=== PATIENT | male | born 1960 | race Caucasian/White ===

== ENCOUNTER 2016-05-27 00:56 | Emergency (ER) | payer OTHER ==
[~2016-05-27] VITALS: Ht 185.4 cm; Wt 83.0 kg
[2016-05-27 01:01] VITALS: BP 109/71; PULSE 75; RESP 16; TEMP 97.9; O2SAT 98
[2016-05-27 01:03] VITALS: O2SAT 98
--- NOTE | 2016-05-27 01:24 | RADRPT ---
EXAM DATE/TIME: 05/27/2016 01:17 [place] COMPARISON: No previous studies available for comparison. INDICATIONS : Chest pain. MEDICAL HISTORY : None. SURGICAL HISTORY : None. ENCOUNTER: Initial ACUITY: 1 day PAIN SCORE: 4/10 LOCATION: chest FINDINGS: A single view of the chest demonstrates the lungs to be symmetrically aerated without evidence of mas s, infiltrate or effusion. The cardiomediastinal contours are unremarkable. Osseous structures are intact. CONCLUSION: The lungs are clear. Chi Villa MD on May 27, 2016 at 1:22 Board Certified Radiologist. This report was verified electronically.
[2016-05-27 01:33] LABS: AUTOMATED NEUTROPHIL # 2.1 TH/MM3 (1.8-7.7); BASOPHIL # 0.1 TH/MM3 (0-0.2); BASOPHIL % 1.1 % (0.0-2.0); EOSINOPHIL # 0.1 TH/MM3 (0-0.4); EOSINOPHIL % 1.5 % (0.0-4.0); HEMATOCRIT 40.1 % (39.0-51.0); HEMO FLAGS DIFF FINAL; LYMPH % 45.1 % (9.0-44.0); LYMPHOCYTE # 2.4 TH/MM3 (1.0-4.8); MEAN CELL VOLUME 97.2 FL (80.0-100.0); MEAN CORPUSCULAR HEMOGLOBIN 33.1 PG (27.0-34.0); MONO % 12.4 % (0.0-8.0); NEUT % 39.9 % (16.0-70.0); PLATELET COUNT 214 TH/MM3 (150-450); RED BLOOD COUNT 4.13 MIL/MM3 (4.50-5.90); RED CELL DISTRIBUTION WIDTH 13.7 % (11.6-17.2); WHITE BLOOD COUNT 5.3 TH/MM3 (4.0-11.0)
[2016-05-27 01:51] LABS: ANION GAP 11 MEQ/L (5-15); APTT (PATIENT) 32.4 SEC (24.3-30.1); BICARBONATE 20.2 MEQ/L (21.0-32.0); BLOOD UREA NITROGEN 30 MG/DL (7-18); CHLORIDE 109 MEQ/L (98-107); GLOMERULAR FILTRATION RATE 44 ML/MIN (>89); INTERNATIONAL NORMALIZED RATIO 0.9 RATIO; MAGNESIUM 1.9 MG/DL (1.5-2.5); POTASSIUM 3.8 MEQ/L (3.5-5.1); PROTHROMBIN TIME - PATIENT 10.1 SEC (9.8-11.6); SODIUM (NA) 140 MEQ/L (136-145)
[2016-05-27 01:54] LABS: CREATINE KINASE 578 U/L (39-308)
[2016-05-27 02:07] LABS: CKMB 6.6 NG/ML (0.5-3.6)
--- NOTE | 2016-05-27 02:57 | PD ---
HPI Chief Complaint: Chest Pain Time Seen by Provider: 00:58 Travel History International Travel<30 days: No Contact w/Intl Traveler<30days: No Traveled to known affect area: No History of Present Illness HPI 55-year-old male complains of right low chest pain. He has had for the past 12 hours. It comes and goes. It is worse with palpation. EMS gave aspirin and oxygen and it seemed to help according to him and them. He just arrived by bus from [place]. He's had no shortness of breath. There is no radiation of pain. Severity moderate. He denies history of coronary artery disease. Patient does smoke. He suffers with hypertension. PFSH Past Medical History Cancer: Yes (MOUTH) Hypertension: Yes Tetanus Vaccination: < 5 Years Influenza Vaccination: Yes Past Surgical History Oral Surgery: Yes (TUMOR REMOVED FROM LEFT JAW) Social History Alcohol Use: Yes (OCC) Tobacco Use: Yes Substance Use: No Allergies-Medications (Allergen,Severity, Reaction): Coded Allergies: No Known Allergies (Unverified , 05/27/16) Review of Systems Except as stated in HPI: all other systems reviewed are Neg Physical Exam Narrative GENERAL: 55-year-old male no acute distress SKIN: Warm and dry. HEAD: Atraumatic. Normocephalic. EYES: Pupils equal and round. No scleral icterus. No injection or drainage. ENT: No nasal bleeding or discharge. Mucous membranes pink and moist. NECK: Trachea midline. No JVD. CARDIOVASCULAR: Regular rate and rhythm. No murmur appreciated. Minimal tenderness along the right inferior costal margin. RESPIRATORY: No accessory muscle use. Clear to auscultation. Breath sounds equal bilaterally. GASTROINTESTINAL: Abdomen soft, non-tender, nondistended. Hepatic and splenic margins not palpable. MUSCULOSKELETAL: No obvious deformities. No clubbing. No cyanosis. No edema. NEUROLOGICAL: Awake and alert. No obvious cranial nerve deficits. Motor grossly within normal limits. Normal speech. PSYCHIATRIC: Appropriate mood and affect; insight and judgment normal. Data Data Last Documented VS Vital Signs Date Time Temp Pulse Resp B/P Pulse Ox O2 Delivery O2 Flow Rate FiO2 05/27/16 01:04 98 Nasal Cannula 2 05/27/16 01:01 97.9 75 16 109/71 VS noted Orders Electrocardiogram (05/27/16 00:58) Basic Metabolic Panel (Bmp) (05/27/16 00:58) Ckmb (Isoenzyme) Profile (05/27/16 00:58) Complete Blood Count With Diff (05/27/16 00:58) Magnesium (Mg) (05/27/16 00:58) Prothrombin Time / Inr (Pt) (05/27/16 00:58) Act Partial Throm Time (Ptt) (05/27/16 00:58) Troponin I (05/27/16 00:58) Chest, Single Ap (05/27/16 00:58) Ecg Monitoring (05/27/16 00:58) Bilateral Bp Monitoring (05/27/16 00:58) Iv Access Insert/Monitor (05/27/16 00:58) Oximetry (05/27/16 00:58) Oxygen Administration (05/27/16 00:58) CKMB (05/27/16 01:05) CKMB% (05/27/16 01:05) Labs Laboratory Tests Test 05/27/16 01:05 White Blood Count 5.3 TH/MM3 Red Blood Count 4.13 MIL/MM3 Hemoglobin 13.7 GM/DL Hematocrit 40.1 % Mean Corpuscular Volume 97.2 FL Mean Corpuscular Hemoglobin 33.1 PG Mean Corpuscular Hemoglobin 34.0 % Concent Red Cell Distribution Width 13.7 % Platelet Count 214 TH/MM3 Mean Platelet Volume 7.8 FL Neutrophils (%) (Auto) 39.9 % Lymphocytes (%) (Auto) 45.1 % Monocytes (%) (Auto) 12.4 % Eosinophils (%) (Auto) 1.5 % Basophils (%) (Auto) 1.1 % Neutrophils # (Auto) 2.1 TH/MM3 Lymphocytes # (Auto) 2.4 TH/MM3 Monocytes # (Auto) 0.7 TH/MM3 Eosinophils # (Auto) 0.1 TH/MM3 Basophils # (Auto) 0.1 TH/MM3 CBC Comment DIFF FINAL Differential Comment Prothrombin Time 10.1 SEC Prothromb Time International 0.9 RATIO Ratio Activated Partial 32.4 SEC Thromboplast Time Sodium Level 140 MEQ/L Potassium Level 3.8 MEQ/L Chloride Level 109 MEQ/L Carbon Dioxide Level 20.2 MEQ/L Anion Gap 11 MEQ/L Blood Urea Nitrogen 30 MG/DL Creatinine 1.62 MG/DL Estimat Glomerular Filtration 44 ML/MIN Rate Random Glucose 90 MG/DL Calcium Level 7.5 MG/DL Magnesium Level 1.9 MG/DL Total Creatine Kinase 578 U/L Creatine Kinase MB 6.6 NG/ML Creatine Kinase MB % 1.1 % Troponin I LESS THAN 0.02 NG/ML MDM Medical Decision Making Medical Screen Exam Complete: Yes Emergency Medical Condition: Yes Medical Record Reviewed: Yes Interpretation(s) CBC & BMP Diagram 05/27/16 01:05 Calcium 7.5 Magnesium 1.9 Total creatinine kinase 578 Troponin less than 0.02 EKG shows a sinus rhythm with a rate of 67 no ischemic injury pattern QT interval is 454 Last 24 hours Impressions Chest X-Ray 05/27/16 0058 Signed Impressions: Service Date/Time: Friday, May 27, 2016 01:17 - CONCLUSION: The lungs are clear. Chi Villa MD Differential Diagnosis NSTEMI, unstable angina, coronary vasospasm, PE, PTX, aortic dissection, pericarditis, myocarditis, endocarditis, PNA, esophageal disease, aneurysm, musculoskeletal etiologies, anxiety, cocaine/sympathomimetic abuse Narrative Course The patient is resting comfortably and feels better, is alert and in no distress. The patients results and examination findings were discussed. The repeat examination is unremarkable and benign. The history, exam, diagnostic testing, and current condition do not suggest any significant pathology to warrant further testing, continued ED treatment, admission, or surgical evaluation at this point. The vital signs have been stable. The patient does not have uncontrollable pain, intractable vomiting, or other significant symptoms. The patient's condition is stable and appropriate for discharge. The patient will pursue further outpatient evaluation with a primary care physician or other designated or consulting physician as indicated in the discharge instructions. The patient expressed understanding and was agreeable with this plan. Diagnosis Primary Impression: Atypical chest pain Referrals: Primary Care Physician 2 days Additional Instructions: You have a choice when it comes to health care, and we are glad that you chose [facility]. Hopefully, we have met your expectations on today's visit. You are welcome to return to [facility] at any time, as we are committed to meeting the health care needs of our community. Med/Other Pt SpecificInfo: No Change to Meds Disposition: 01 DISCHARGE HOME Condition: Stable Jack Fajardo MD May 27, 2016 02:57
--- NOTE | 2016-05-27 14:27 | EKG ---
Date Performed: 05/27/2016 Time Performed: 01:08:28 PTAGE: 55 years EKG: Sinus rhythm MODERATE VOLTAGE CRITERIA FOR LVH, CONSIDER NORMAL VARIANT PROLONGED QT INTERVAL ABNORMAL ECG NO PREVIOUS TRACING DOCTOR: Manuela Cervantes Interpretating Date/Time 05/27/2016 14:22:20
== END 2016-05-27 04:06 | disposition home or self-care (01) ==
LOC: NEPE 00:56
DX: R07.89 Other chest pain (principal); I10 Essential (primary) hypertension; Z72.0 Tobacco use; R94.31 Abnormal electrocardiogram [ECG] [EKG]
CPT/HCPCS: 71010; 80048; 82550; 82552; 83735; 84484; 85025; 85610; 85730; 93005

== ENCOUNTER 2016-05-27 04:48 | Emergency (ER) | payer OTHER ==
[~2016-05-27] VITALS: Ht 185.4 cm; Wt 77.0 kg
[2016-05-27 05:01] VITALS: BP 119/71; PULSE 78; RESP 15; TEMP 97.8; O2SAT 99
--- NOTE | 2016-05-27 06:22 | PD ---
HPI Chief Complaint: Psychiatric Symptoms Time Seen by Provider: 06:13 Travel History International Travel<30 days: No Contact w/Intl Traveler<30days: No Traveled to known affect area: No History of Present Illness HPI 55-year-old black male returns back to the ER under Casper act after just being medically cleared for chest pain. This is a patient who just got off the [employer] bus earlier this evening after coming in from [place]. He states that he had been living in [place]. He had left his girlfriend who is his babies ann after he found out that she had been cheating on him. He states that he has a history of anxiety, depression, PTSD and stopped taking his medications at that time. He has been off his medicine for approximately 3 weeks. He states that he had been staying in [place] but now decided to come to the [facility]. He came directly to the ER after getting off the bus. The patient is currently homeless. He does admit to smoking crack cocaine. He claims that he is feeling acutely depressed and suicidal. He states that he has plans on killing his girlfriend and himself. He states that he did have access to a gun but he had disposed of that. He also states that he does have the ability to get another one. He denies any toxic ingestions. He does drink alcohol and smokes cigarettes as well. The patient states that he feels that he needs to be admitted to the hospital for day or 2 to get his head straight. PFSH Past Medical History Narrative Medical Anxiety, depression, substance abuse, hypertension Cancer: Yes (MOUTH) Hypertension: Yes Past Surgical History Oral Surgery: Yes (TUMOR REMOVED FROM LEFT JAW) Social History Alcohol Use: Yes (OCC) Tobacco Use: Yes Substance Use: Yes (crack) Allergies-Medications (Allergen,Severity, Reaction): Coded Allergies: No Known Allergies (Unverified , 05/27/16) Review of Systems Except as stated in HPI: all other systems reviewed are Neg General / Constitutional: No: Fever, Chills Eyes: No: Diploplia, Blurred Vision, Blindness HENT: No: Headaches, Neck Pain Cardiovascular: Positive: Chest Pain or Discomfort, No: Palpitations Respiratory: No: Cough, Shortness of Breath Gastrointestinal: No: Nausea, Vomiting Genitourinary: No: Frequency, Dysuria Musculoskeletal: No: Myalgias, Arthralgias Skin: No Rash, No Itching Neurologic: No: Headache, Change in Mentation Psychiatric: Positive: Depression, Suicidal Ideations, Mood Disorder, Substance Abuse, Homicidal Ideation, No: Anxiety, Disorder of Thought Physical Exam Narrative GENERAL: Well-nourished, well-developed patient. SKIN: Warm and dry. HEAD: Normocephalic and atraumatic. EYES: No scleral icterus. No injection or drainage. ENT: No nasal drainage noted. Mucous membranes pink. Airway patent. NECK: Supple, trachea midline. Moves head freely without obvious discomfort. CARDIOVASCULAR: Regular rate and rhythm without murmurs, gallops, or rubs. RESPIRATORY: Breath sounds equal bilaterally. No accessory muscle use. GASTROINTESTINAL: Abdomen soft, non-tender, nondistended. EXTREMITIES: No cyanosis or edema. BACK: Nontender without obvious deformity. No CVA tenderness. NEURO: Patient is alert and oriented. no sensorimotor deficits. Nonfocal. Normal speech. PSYCH: No delusions. No auditory or visual hallucinations. Data Data Last Documented VS Vital Signs Date Time Temp Pulse Resp B/P Pulse Ox O2 Delivery O2 Flow Rate FiO2 05/27/16 05:01 97.8 78 15 119/71 99 Orders Psych Screen (05/27/16 05:29) MDM Medical Decision Making Medical Screen Exam Complete: Yes Emergency Medical Condition: Yes Medical Record Reviewed: Yes Interpretation(s) Patient's laboratory tests have been reviewed from his prior visit earlier this evening. Differential Diagnosis MDM: High Differential diagnoses: Schizophrenia, schizoaffective disorder, bipolar, anxiety, depression, adjustment reaction, mood disorder NOS, ODD, depressive disorder NOS, dementia, dementia with agitation, psychosis NOS, substance induced mood disorder, intermittent explosive disorder, Asperger syndrome, infection,electrolyte abnormality, malingering. Narrative Course Mental health screening discussed with the patient. Psychiatric screen ordered. The patient is medically cleared. I see no reason to repeat his laboratory tests this evening. I see no reason to perform a drug screen. The patient does admit to alcohol abuse as well as crack cocaine abuse. This is adjustment reaction with depressed mood, substance abuse, malingering Diagnosis Primary Impression: Adjustment reaction of adolescence with depressed mood Additional Impressions: Substance abuse Malingering Condition: Stable Jack Breaux May 27, 2016 06:22
[2016-05-27 10:00] VITALS: BP 124/82; PULSE 68; RESP 18; TEMP 97.9; O2SAT 97
[2016-05-27 11:12] LABS: BLOOD, URINE NEG (NEG); COMMENT (UR) CULT NOT INDICATED; CULTURE IF INDICATED CULT NOT INDICATED; GLUCOSE,URINE NEG (NEG); KETONE, URINE NEG (NEG); NITRITE,URINE NEG (NEG); SQUAMOUS EPITHELIAL CELL URINE 1 /hpf (0-5); URINE COLOR LIGHT-YELLOW (YELLW/STRAW)
[2016-05-27 11:36] VITALS: BP 118/60; PULSE 54; RESP 18; TEMP 99; O2SAT 96
[2016-05-27 14:56] VITALS: BP 135/80; PULSE 60; RESP 20; O2SAT 100
[2016-05-27 18:58] VITALS: BP 126/76; PULSE 60; RESP 18; TEMP 97.8; O2SAT 99
[2016-05-27 22:47] VITALS: BP 129/82; PULSE 51; RESP 19
[2016-05-28 02:40] VITALS: BP 130/81; PULSE 53; RESP 18; O2SAT 98
[2016-05-28 06:32] VITALS: BP 160/90; PULSE 65; RESP 16; O2SAT 98
--- NOTE | 2016-05-28 09:41 | PD ---
History of Present Illness Chief Complaint: Psychiatric Symptoms Time Seen by Provider: 09:30 Travel History International Travel<30 Days: No Contact w/Intl Traveler<30days: No Known affected area: No Legal Status Legal Status: Casper Act Casper Act Signed By: Daisy Vivar History of Present Illness: History of Present Illness 55-year-old black male with a reported history of depression who returns back to the ER under Casper act after he reported he " wants to kill his ex- girlfriend and then himself. He advised the police he had thrown out his only firearm but that it would be easy to obtain a new one.". This patient had been seen in Ed earlier in the day for complaints of chest pain and had been cleared. As per ED documentation included in this report " This is a patient who just got off the [employer] bus earlier this evening after coming in from [place]. He had left his girlfriend after he found out that she had been cheating on him. He states that he has a history of anxiety, depression, PTSD and stopped taking his medications at that time approximately 3 weeks ago. He states that he had been staying in [place] but now decided to come to the [facility]. The patient is currently homeless. He does admit to smoking crack cocaine. He claims that he is feeling acutely depressed and suicidal. He states that he has plans on killing his girlfriend and himself. He states that he did have access to a gun but he had disposed of that. He also states that he does have the ability to get another one. The patient states that he feels that he needs to be admitted to the hospital for day or 2 to get his head straight." He was monitored in [facility] and he presented no behavioral concerns and no suicidality. This morning I am informed by Nurse Abrams that he has been requesting discharge. As per EMR he has presented to Ed on several occasions but has not had any psychiatric admissions here. He is currently not in treatment. No laboratory available for review. Patient is seen in [facility]. Awake, alert and oriented. 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 He states " I need 2 peppermint sticks and a cup of coffee". His speech is clear, logical and coherent. There is no indication that he is responding to internal stimuli. There is no significant depression or anxiety. No suicidal or homicidal ideation, intent or plan. " I just said that to get off the street. I'm not going to kill the heifer". Patient is also future oriented and he plans on contacting his family in [place] to get back there. PFSH Past Medical History Cancer: Yes (MOUTH) Hypertension: Yes Past Surgical History Oral Surgery: Yes (TUMOR REMOVED FROM LEFT JAW) Psychiatric History Psychiatric History Hx Psychiatric Treatment: DENIES History of Inpatient Treatment: No Guns or firearms in home: No Social History Single male, currently homeless. Hx Alcohol Use: Yes (OCC) Hx Tobacco Use: Yes Hx Substance Use: Yes Substance Use Type: Alcohol, Crack Hx of Substance Use Treatment: No Family Psychiatric History None reported. Allergies-Medications (Allergen,Severity, Reaction): Coded Allergies: No Known Allergies (Unverified , 05/27/16) Reported Meds & Prescriptions Reported Meds & Active Scripts Active No Active Prescriptions or Reported Medications Review of Systems Except as stated in HPI: all other systems reviewed are Neg Psychiatric: COMPLAINS OF: Suicidal Ideation Exam Alert: Yes [place]: Person (denies any) Mood: Calm Affect: Euthymic Speech: Clear, Logical Eye Contact: Normal Memory Intact: Comment (no impairmetn) Hallucinations: Other (negative) Delusions: No Suicidal: Ideation (deneis any) Homicidal: Ideation (deenis any) Insight/Judgement poor. poor. MDM Medical Decision Making Medical Record Reviewed: Yes Assessment/Plan 55 year old male under a BA after he contacted [facility] to inform them he was feeling suicidal and homicidal. He had presented earlier to the ED for evaluation of chest pain. It appears that the patient took a bus to [place] and upon arriving here decided he needed " some time to get my head straight". Patient was monitored and at this time does not present any criteria for BA and does not present any criteria for an inpatient psychiatric treatment. he has expressed his desire to be discharged in order for him to continue his journey to his family in [place]. His BA will be lifted. Orders Diet Regular Basic (05/27/16 Lunch) Urinalysis - C+S If Indicated (05/27/16 09:51) Diet Regular Basic (05/27/16 Dinner) Diet Regular Basic (05/28/16 Breakfast) Results Vital Signs Date Time Temp Pulse Resp B/P Pulse Ox O2 Delivery O2 Flow Rate FiO2 05/28/16 06:32 65 16 160/90 98 Room Air 05/28/16 02:40 53 18 130/81 98 Room Air 05/27/16 22:47 51 19 129/82 05/27/16 18:58 97.8 60 18 126/76 99 Room Air 05/27/16 14:56 60 20 135/80 100 Room Air 05/27/16 11:36 99.0 54 18 118/60 96 Room Air 05/27/16 10:00 97.9 68 18 124/82 97 Room Air Laboratory Tests Test 05/27/16 09:50 Urine Color LIGHT-YELLOW Urine Turbidity CLEAR Urine pH 5.0 Urine Specific [place] 1.007 Urine Protein NEG Urine Glucose (UA) NEG Urine Ketones NEG Urine Occult Blood NEG Urine Nitrite NEG Urine Bilirubin NEG Urine Urobilinogen LESS THAN 2.0 Urine Leukocyte Esterase NEG Urine WBC LESS THAN 1 Urine Squamous Epithelial 1 Cells Microscopic Urinalysis Comment CULT NOT INDICATED Diagnosis Primary Impression: adjustment reaction Additional Impressions: Substance abuse Malingering Psychiatrically Cleared: Yes Prescriptions No Active Prescriptions or Reported Meds Disposition: 01 DISCHARGE HOME Condition: Stable Problem Qualifiers Johanna Torres May 28, 2016 09:41
== END 2016-05-28 10:13 | disposition home or self-care (01) ==
LOC: NEPA 04:48 → NEPJ 05-28 10:13
DX: F43.20 Adjustment disorder, unspecified (principal); R45.851 Suicidal ideations; F41.8 Other specified anxiety disorders; F43.10 Post-traumatic stress disorder, unspecified; I10 Essential (primary) hypertension; F17.210 Nicotine dependence, cigarettes, uncomplicated; F14.10 Cocaine abuse, uncomplicated; Z59.0 Homelessness; Z76.5 Malingerer [conscious simulation]
CPT/HCPCS: 81001; 99285

== ENCOUNTER 2016-06-24 00:41 | Emergency (ER) | payer OTHER ==
[~2016-06-24] VITALS: Ht 185.4 cm; Wt 82.0 kg
[2016-06-24 00:43] VITALS: BP 137/87; PULSE 76; RESP 20; TEMP 98; O2SAT 96
[2016-06-24] MEDS ORDERED: ARIP1TAB5 PO (01:30)
[2016-06-24] MEDS ORDERED: FLUO-1 PO (01:30)
[2016-06-24] MEDS ORDERED: TRAZ100T4 PO (01:30)
--- NOTE | 2016-06-24 04:48 | PD ---
HPI Chief Complaint: Psychiatric Symptoms Time Seen by Provider: 04:45 Travel History International Travel<30 days: No Contact w/Intl Traveler<30days: No Traveled to known affect area: No History of Present Illness HPI 55-year-old black male presents to emergency department on a voluntary basis for psychological evaluation. The patient states that he is feeling depressed and having suicidal and homicidal thoughts. He states that he feels that he needs to be admitted so he can rest. He's had a lot of social issues going on in his life. 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 He states that he rents a room on a daily basis for $10. He is currently homeless. The patient has a history of substance abuse. He denies using crack cocaine currently. He is requesting something to eat and to allow him to sleep. PFSH Past Medical History Cancer: Yes (MOUTH) Cardiovascular Problems: Yes (HTN) Diminished Hearing: No Hypertension: Yes Tetanus Vaccination: < 5 Years Influenza Vaccination: Yes Past Surgical History Oral Surgery: Yes (TUMOR REMOVED FROM LEFT JAW) Social History Alcohol Use: Yes (OCC) Tobacco Use: Yes (5 CIG PER DAY) Substance Use: Yes Allergies-Medications (Allergen,Severity, Reaction): Coded Allergies: No Known Allergies (Unverified , 06/24/16) Reported Meds & Prescriptions Reported Meds & Active Scripts Active Reported Abilify (Aripiprazole) 10 Mg Tab 10 Mg PO BID unsure of dose last took 1 mo ago Trazodone (Trazodone HCl) 100 Mg Tab 100 Mg PO HS unsure of dose last took 1 mo ago Prozac (Fluoxetine HCl) 10 Mg Cap 10 Mg PO BID unsure of dose last took 1 mo ago Review of Systems Except as stated in HPI: all other systems reviewed are Neg Psychiatric: Positive: Depression, Suicidal Ideations, Mood Disorder, Homicidal Ideation, No: Disorder of Thought, Substance Abuse Physical Exam Narrative GENERAL: Well-nourished, well-developed patient. SKIN: Warm and dry. HEAD: Normocephalic and atraumatic. EYES: No scleral icterus. No injection or drainage. ENT: No nasal drainage noted. Mucous membranes pink. Airway patent. NECK: Supple, trachea midline. Moves head freely without obvious discomfort. CARDIOVASCULAR: Regular rate and rhythm without murmurs, gallops, or rubs. RESPIRATORY: Breath sounds equal bilaterally. No accessory muscle use. GASTROINTESTINAL: Abdomen soft, non-tender, nondistended. EXTREMITIES: No cyanosis or edema. BACK: Nontender without obvious deformity. No CVA tenderness. NEURO: Patient is alert and oriented. no sensorimotor deficits. Nonfocal. Normal speech. PSYCH: No delusions. No auditory or visual hallucinations. Data Data Last Documented VS Vital Signs Date Time Temp Pulse Resp B/P Pulse Ox O2 Delivery O2 Flow Rate FiO2 06/24/16 00:43 98.0 76 20 137/87 96 Room Air Orders Psych Screen (06/24/16 04:37) MDM Medical Decision Making Medical Screen Exam Complete: Yes Emergency Medical Condition: Yes Medical Record Reviewed: Yes Differential Diagnosis MDM: High Differential diagnoses: Schizophrenia, schizoaffective disorder, bipolar, anxiety, depression, adjustment reaction, mood disorder NOS, ODD, depressive disorder NOS, dementia, dementia with agitation, psychosis NOS, substance induced mood disorder, intermittent explosive disorder, Asperger syndrome, infection,electrolyte abnormality, malingering. Narrative Course Mental health screening discussed with the patient. Psychiatric screen ordered. The patient is been medically cleared. This is mood disorder, history of substance abuse Diagnosis Primary Impression: Mood disorder Additional Impression: Substance abuse Condition: Stable Jack Breaux Jun 24, 2016 04:48
== END 2016-06-24 05:36 ==
LOC: NEPA 00:41
DX: F39 Unspecified mood [affective] disorder (principal); F19.10 Other psychoactive substance abuse, uncomplicated; R45.851 Suicidal ideations; R45.850 Homicidal ideations; I10 Essential (primary) hypertension; Z59.0 Homelessness; Z72.0 Tobacco use; Z85.819 Personal history of malignant neoplasm of unspecified site of lip, oral cavity, and pharynx
CPT/HCPCS: 99284

== ENCOUNTER 2016-07-16 05:11 | Emergency (ER) | payer OTHER ==
[~2016-07-16] VITALS: Ht 185.4 cm; Wt 70.0 kg
[~2016-07-16 05:11] MED LIST: ARIP1TAB5 PO; FLUO-1 PO; TRAZ100T4 PO
[2016-07-16 05:19] VITALS: BP 151/97; PULSE 74; RESP 18; TEMP 97.8; O2SAT 99
--- NOTE | 2016-07-16 06:39 | PD ---
HPI Chief Complaint: Psychiatric Symptoms Time Seen by Provider: 06:32 Travel History International Travel<30 days: No Contact w/Intl Traveler<30days: No Traveled to known affect area: No History of Present Illness HPI 55-year-old male presents to the emergency department for complaint of generalized weakness and concerned that people around him or trying to poison him. Patient states for the past month he has been aware that people around him dull like him and that there have ears and that they've been trying to poison him. Patient does not report any weight loss. Patient does not report any vomiting or diarrhea. Patient does not report any abdominal pain. Patient denies any chest pain or shortness of breath. Patient states he feels tremulous and that his bones look abnormal and his hands. Patient has history of bipolar disorder and posttraumatic stress disorder. Patient has been seen numerous times in this emergency department for psychiatric related issues. Patient also has history of previous mouth cancer status post surgery and hypertension. Patient admits to alcohol use tobacco use but denies cocaine use. PFSH Past Medical History Narrative Medical mouth cancer status post surgery and hypertension Cancer: Yes (MOUTH) Cardiovascular Problems: Yes (HTN) Diminished Hearing: No Hypertension: Yes Tetanus Vaccination: Unknown Influenza Vaccination: No Past Surgical History Oral Surgery: Yes (TUMOR REMOVED FROM LEFT JAW) Social History Alcohol Use: Yes (OCC) Tobacco Use: Yes (5 CIG PER DAY) Substance Use: Yes Allergies-Medications (Allergen,Severity, Reaction): Coded Allergies: No Known Allergies (Unverified , 06/24/16) Reported Meds & Prescriptions Reported Meds & Active Scripts Active Reported Abilify (Aripiprazole) 10 Mg Tab 10 Mg PO BID unsure of dose last took 1 mo ago Trazodone (Trazodone HCl) 100 Mg Tab 100 Mg PO HS unsure of dose last took 1 mo ago Prozac (Fluoxetine HCl) 10 Mg Cap 10 Mg PO BID unsure of dose last took 1 mo ago Review of Systems Except as stated in HPI: all other systems reviewed are Neg General / Constitutional: No: Fever, Chills HENT: No: Congestion Cardiovascular: No: Chest Pain or Discomfort Respiratory: No: Shortness of Breath Gastrointestinal: No: Nausea, Vomiting, Diarrhea, Abdominal Pain Genitourinary: No: Urgency, Frequency, Dysuria, Decreased Urinary Output Musculoskeletal: Positive: Pain (joint pain in his hands), No: Myalgias, Arthralgias Skin: No Rash Neurologic: Positive: Weakness, No: Dizziness, Syncope, Focal Abnormalities, Coordination Problem Psychiatric: Positive: Anxiety Endocrine: No: Heat Intolerance, Cold Intolerance Hematologic/Lymphatic: No: Easy Bruising Physical Exam Narrative GENERAL: Well-developed well-nourished disheveled male in no acute distress no respiratory distress eating pork rinds and a chocolate chip cookie SKIN: Warm and dry. HEAD: Atraumatic. Normocephalic. EYES: Pupils equal and round. No scleral icterus. No injection or drainage. ENT: No nasal bleeding or discharge. Mucous membranes pink and moist. NECK: Trachea midline. No JVD. CARDIOVASCULAR: Regular rate and rhythm. RESPIRATORY: No accessory muscle use. Clear to auscultation. Breath sounds equal bilaterally. GASTROINTESTINAL: Abdomen soft, non-tender, nondistended. Hepatic and splenic margins not palpable. MUSCULOSKELETAL: Extremities without clubbing, cyanosis, or edema. No obvious deformities. NEUROLOGICAL: Awake and alert. No obvious cranial nerve deficits. Motor grossly within normal limits. Five out of 5 muscle strength in the arms and legs. Normal speech. PSYCHIATRIC: Appropriate mood and affect; insight and judgment normal. Data Data Last Documented VS Vital Signs Date Time Temp Pulse Resp B/P Pulse Ox O2 Delivery O2 Flow Rate FiO2 07/16/16 14:16 76 23 161/91 98 07/16/16 09:00 Room Air 07/16/16 05:19 97.8 Orders Complete Blood Count With Diff (07/16/16 06:32) Comprehensive Metabolic Panel (07/16/16 06:32) Thyroid Stimulating Hormone (07/16/16 06:32) Urinalysis - C+S If Indicated (07/16/16 06:32) Psych Screen (07/16/16 06:32) Drug Screen, Random Urine (07/16/16 06:32) Alcohol (Ethanol) (07/16/16 06:32) Magnesium (Mg) (07/16/16 06:32) Diet Regular Basic (07/16/16 Lunch) Labs Laboratory Tests Test 07/16/16 06:45 White Blood Count 5.2 TH/MM3 Red Blood Count 4.46 MIL/MM3 Hemoglobin 15.0 GM/DL Hematocrit 42.6 % Mean Corpuscular Volume 95.6 FL Mean Corpuscular Hemoglobin 33.6 PG Mean Corpuscular Hemoglobin 35.1 % Concent Red Cell Distribution Width 13.4 % Platelet Count 227 TH/MM3 Mean Platelet Volume 8.6 FL Neutrophils (%) (Auto) 54.4 % Lymphocytes (%) (Auto) 36.7 % Monocytes (%) (Auto) 7.7 % Eosinophils (%) (Auto) 0.4 % Basophils (%) (Auto) 0.8 % Neutrophils # (Auto) 2.9 TH/MM3 Lymphocytes # (Auto) 1.9 TH/MM3 Monocytes # (Auto) 0.4 TH/MM3 Eosinophils # (Auto) 0.0 TH/MM3 Basophils # (Auto) 0.0 TH/MM3 CBC Comment DIFF FINAL Differential Comment Sodium Level 140 MEQ/L Potassium Level 4.1 MEQ/L Chloride Level 106 MEQ/L Carbon Dioxide Level 22.7 MEQ/L Anion Gap 11 MEQ/L Blood Urea Nitrogen 13 MG/DL Creatinine 1.13 MG/DL Estimat Glomerular Filtration 67 ML/MIN Rate Random Glucose 60 MG/DL Calcium Level 8.7 MG/DL Magnesium Level 2.2 MG/DL Total Bilirubin 0.6 MG/DL Aspartate Amino Transf 38 U/L (AST/SGOT) Alanine Aminotransferase 30 U/L (ALT/SGPT) Alkaline Phosphatase 85 U/L Total Protein 7.5 GM/DL Albumin 3.6 GM/DL Thyroid Stimulating Hormone 0.699 uIU/ML 3rd Gen Ethyl Alcohol Level 73 MG/DL [facility] Medical Decision Making Medical Screen Exam Complete: Yes Emergency Medical Condition: Yes Medical Record Reviewed: Yes Differential Diagnosis Adjustment disorder, paranoid schizophrenia, exacerbation anxiety depression, electrolyte disturbance, thyroid dysfunction, polysubstance ingestion Narrative Course 55-year-old male with history of psychiatric illness presents stating that he feels like he is being poisoned. Patient himself is not suicidal or homicidal. Patient presents stating that he needs someone to look at the bones in his hands because or abnormal and he is having generalized weakness and is convinced someone was putting white stuff and his food and trying to kill him. Specimens collected and sent for resulting patient will receive psych evaluation Care signed over to Dr Irizarry --follow up pending labs and disposition Estefany Rivas MD Jul 16, 2016 06:39
[2016-07-16 06:40] VITALS: BP 143/81; PULSE 74; RESP 18; O2SAT 98
[2016-07-16 06:57] LABS: AUTOMATED NEUTROPHIL # 2.9 TH/MM3 (1.8-7.7); BASOPHIL % 0.8 % (0.0-2.0); EOSINOPHIL % 0.4 % (0.0-4.0); HEMATOCRIT 42.6 % (39.0-51.0); HEMO FLAGS DIFF FINAL; LYMPH % 36.7 % (9.0-44.0); LYMPHOCYTE # 1.9 TH/MM3 (1.0-4.8); MEAN CELL VOLUME 95.6 FL (80.0-100.0); MEAN CORPUSCULAR HEMOGLOBIN 33.6 PG (27.0-34.0); MEAN CORPUSCULAR HGB CONC 35.1 % (32.0-36.0); MONO % 7.7 % (0.0-8.0); NEUT % 54.4 % (16.0-70.0); PLATELET COUNT 227 TH/MM3 (150-450); RED BLOOD COUNT 4.46 MIL/MM3 (4.50-5.90); RED CELL DISTRIBUTION WIDTH 13.4 % (11.6-17.2); WHITE BLOOD COUNT 5.2 TH/MM3 (4.0-11.0)
[2016-07-16 07:22] LABS: ALKALINE PHOSPHATASE 85 U/L (45-117); TOTAL BILIRUBIN ADULT 0.6 MG/DL (0.2-1.0)
[2016-07-16 07:24] LABS: ALT (GPT) 30 U/L (12-78); ANION GAP 11 MEQ/L (5-15); AST (GOT) 38 U/L (15-37); BICARBONATE 22.7 MEQ/L (21.0-32.0); BLOOD UREA NITROGEN 13 MG/DL (7-18); CHLORIDE 106 MEQ/L (98-107); GLOMERULAR FILTRATION RATE 67 ML/MIN (>89); MAGNESIUM 2.2 MG/DL (1.5-2.5); SODIUM (NA) 140 MEQ/L (136-145)
[2016-07-16 07:25] LABS: POTASSIUM 4.1 MEQ/L (3.5-5.1)
[2016-07-16 09:00] VITALS: BP 164/84; PULSE 85; RESP 20; O2SAT 95
[2016-07-16 14:16] VITALS: BP 161/91
--- NOTE | 2016-07-28 18:20 | PD ---
Data Data Orders Complete Blood Count With Diff (07/16/16 06:32) Comprehensive Metabolic Panel (07/16/16 06:32) Thyroid Stimulating Hormone (07/16/16 06:32) Psych Screen (07/16/16 06:32) Alcohol (Ethanol) (07/16/16 06:32) Magnesium (Mg) (07/16/16 06:32) Diet Regular Basic (07/16/16 Lunch) MDM Supervised Visit with ODILON: No Narrative Course Assessment was performed by Dr. Rivas and I was asked to follow up on labs. Labs are all reassuring with an ETOH level of 73. Pt. was evaluated by psychiatry. Patient Instructions: General Instructions Departure Forms: Tests/Procedures Disposition: AGAINST MEDICAL ADVICE Condition: Stable Krystina Irizarry MD Jul 28, 2016 18:20
== END 2016-07-16 14:16 | disposition left against medical advice (07) ==
LOC: NEPC 05:11
DX: R53.1 Weakness (principal); Z72.0 Tobacco use; Z53.29 Procedure and treatment not carried out because of patient's decision for other reasons; Y90.2 Blood alcohol level of 40-59 mg/100 ml
CPT/HCPCS: 80053; 80320; 83735; 84443; 85025; 99283

== ENCOUNTER 2016-08-01 18:28 | Emergency (ER) | payer OTHER ==
[~2016-08-01] VITALS: Ht 188 cm; Wt 82.0 kg
[2016-08-01 18:29] VITALS: BP 134/82; PULSE 92; RESP 14; TEMP 97.8; O2SAT 95
--- NOTE | 2016-08-01 19:40 | PD ---
HPI Chief Complaint: Skin Problem Time Seen by Provider: 19:10 Travel History International Travel<30 days: No Contact w/Intl Traveler<30days: No Traveled to known affect area: No History of Present Illness HPI Patient comes in complaining of painful lump on the volar surface of his left wrist radial aspect ongoing for approximately a year. Patient denies doing anything for this. Patient states pain is worse with picking up things. Describes pain as stinging like in nature without radiation. Patient denies any known trauma, numbness or tingling, or fevers. History Past Medical Histgory Hx Cancer: Yes (MOUTH) Social History Alcohol Use: Yes (OCC) Tobacco Use: Yes (5 CIG PER DAY) Allergies-Medications (Allergen,Severity, Reaction): Coded Allergies: No Known Allergies (Unverified , 08/01/16) Reported Meds & Prescriptions Reported Meds & Active Scripts Active No Active Prescriptions or Reported Medications Review of Systems Except as stated in HPI: all other systems reviewed are Neg Physical Exam Narrative GENERAL: Well-developed, well nourished, in no acute distress, and non-ill appearing. SKIN: Warm and dry. Ganglion cysts noted hole or surface of left wrist radial aspect is minimally tender to palpation. It is afebrile, nonerythematous, and without crepitus. HEAD: Atraumatic. Normocephalic. EYES: Pupils equal and round. EOMI. No scleral icterus. No injection or drainage. ENT: No nasal bleeding or discharge. Mucous membranes pink and moist. NECK: Trachea midline. Supple. No nuclear rigidity. RESPIRATORY: No accessory muscle use. No respiratory distress. MUSCULOSKELETAL: No obvious deformities. No clubbing. No cyanosis. No edema. Full range of motion. NEUROLOGICAL: Awake and alert. No obvious cranial nerve deficits. Motor grossly within normal limits. Normal speech. PSYCHIATRIC: Appropriate mood and affect; insight and judgment normal. Data Data Last Documented VS Vital Signs Date Time Temp Pulse Resp B/P Pulse Ox O2 Delivery O2 Flow Rate FiO2 08/01/16 18:29 97.8 92 14 134/82 95 MDM Medical Screen Exam Complete: Yes Emergency Medical Condition: No Narrative Course History and physical exam findings are not consistent with an emergent medical condition. He was given the option of receiving additional care, but has declined. Therefore the appropriate counseling recommendations were discussed with the patient and he was instructed to follow-up with his primary care physician as soon as possible for reevaluation. Patient was also informed of community resources from which he can obtain additional care. He is agreeable and verbalizes an understanding of the proposed plan. The patient states he will immediately return to the emergency department if his current complaints do not improve, new symptoms arise, or emergent condition develops. Patient ambulated out of the emergency department without difficulty. Primary Impression: Encounter for medical screening examination Scripts No Active Prescriptions or Reported Meds Disposition: EDGO-ED USE ONLY Condition: Stable Jose Alberto Galeas Aug 01, 2016 19:40
== END 2016-08-01 19:30 | disposition left against medical advice (07) ==
LOC: NEPB 18:28
DX: R68.89 Other general symptoms and signs (principal)
CPT/HCPCS: 99281

== ENCOUNTER 2016-08-11 00:19 | Inpatient (IN) | payer OTHER ==
[~2016-08-11] VITALS: Ht 185.4 cm; Wt 67.4 kg
[2016-08-11 00:43] VITALS: BP 151/88; PULSE 76; RESP 16; TEMP 98.3; O2SAT 97
[2016-08-11] MEDS ORDERED: HALOPERIDOL LACTATE 5 MG/ML AMP ONE (00:55)
[2016-08-11] MEDS ORDERED: LORazepam 2 MG/ML VIAL ONE (00:55)
[2016-08-11] MEDS ORDERED: diphenhydrAMINE HCL 50 MG/ML VIAL ONE (00:56)
[2016-08-11] MEDS ORDERED: diphenhydrAMINE HCL 50 MG/ML VIAL IM ONE (01:00)
[2016-08-11] MEDS ORDERED: LORazepam 2 MG/ML VIAL IM ONE (01:00)
[2016-08-11] MEDS ORDERED: HALOPERIDOL LACTATE 5 MG/ML AMP IM ONE (01:00)
--- NOTE | 2016-08-11 01:05 | PD ---
HPI Chief Complaint: Psychiatric Symptoms Time Seen by Provider: 00:57 Travel History International Travel<30 days: No Contact w/Intl Traveler<30days: No Traveled to known affect area: No History of Present Illness HPI Patient is a 55-year-old male who presents to emergency room to after sagastume act was initiated by police officers. As per police officers, patient made suicidal comments. Patient refuses to provide hpi at this time. Patient yelling and screaming and threatening staff "I'm not going to tell you anything." PFSH Past Medical History Cancer: Yes (MOUTH) Cardiovascular Problems: Yes (HTN) Diminished Hearing: No Hypertension: Yes Immunizations Current: Yes Tetanus Vaccination: Never Vaccinated Influenza Vaccination: Yes Past Surgical History Oral Surgery: Yes (TUMOR REMOVED FROM LEFT JAW) Social History Alcohol Use: Yes (OCC) Tobacco Use: Yes (5 CIG PER DAY) Substance Use: Yes Allergies-Medications (Allergen,Severity, Reaction): Coded Allergies: No Known Allergies (Unverified , 08/11/16) Reported Meds & Prescriptions Reported Meds & Active Scripts Active No Active Prescriptions or Reported Medications Review of Systems ROS Limitations: Refused, Combative, Psychotic Physical Exam Narrative GENERAL: mild distress SKIN: Warm and dry. HEAD: Atraumatic. Normocephalic. EYES: Pupils equal and round. No scleral icterus. No injection or drainage. ENT: No nasal bleeding or discharge. Mucous membranes pink and moist. NECK: Trachea midline. No JVD. CARDIOVASCULAR: Regular rate and rhythm. No murmur appreciated. RESPIRATORY: No accessory muscle use. Clear to auscultation. Breath sounds equal bilaterally. GASTROINTESTINAL: Abdomen soft, non-tender, nondistended. Hepatic and splenic margins not palpable. MUSCULOSKELETAL: No obvious deformities. No clubbing. No cyanosis. No edema. NEUROLOGICAL: Awake and alert. No obvious cranial nerve deficits. Motor grossly within normal limits. Normal speech. PSYCHIATRIC: Agitated, suicidal ideations Data Data Last Documented VS Vital Signs Date Time Temp Pulse Resp B/P Pulse Ox O2 Delivery O2 Flow Rate FiO2 08/11/16 00:43 98.3 76 16 151/88 97 Orders Haloperidol Inj (Haldol Inj) (08/11/16 00:55) Lorazepam Inj (Ativan Inj) (08/11/16 00:55) Complete Blood Count With Diff (08/11/16 00:56) Comprehensive Metabolic Panel (08/11/16 00:56) Psych Screen (08/11/16 00:56) Haloperidol Inj (Haldol Inj) (08/11/16 01:00) Lorazepam Inj (Ativan Inj) (08/11/16 01:00) Drug Screen, Random Urine (08/11/16 00:56) Diphenhydramine Inj (Benadryl Inj) (08/11/16 01:00) Diphenhydramine Inj (Benadryl Inj) (08/11/16 00:56) Alcohol (Ethanol) (08/11/16 00:57) Salicylates (Aspirin) (08/11/16 00:57) Tylenol (Acetaminophen) (08/11/16 00:57) MDM Medical Decision Making Medical Screen Exam Complete: Yes Emergency Medical Condition: Yes Interpretation(s) Vital Signs Date Time Temp Pulse Resp B/P Pulse Ox O2 Delivery O2 Flow Rate FiO2 08/11/16 00:43 98.3 76 16 151/88 97 Differential Diagnosis Suicidal evaluations, drug abuse Narrative Course Patient is a 55-year-old male who presents to emergency room after sagastume act initiated by police officers. As per PO, patient made suicidal comment today. Patient yelling screaming while in the emergency room, patient walking out of the room, thrashing his arms in the air, refusing to provide history of present illness. Patient threatening staff, patient required chemical sedation for his safety as well as safety of staff. Plan to have patient be seen by psychiatry once medically cleared Scripts No Active Prescriptions or Reported Meds Kati Ornelas DO Aug 11, 2016 01:05
[2016-08-11 01:35] LABS: AMPHETAMINE, URINE NEG (NEG); BARBITURATES, URINE NEG (NEG); COCAINE, URINE POS (NEG)
[2016-08-11 01:41] LABS: AUTOMATED NEUTROPHIL # 3.8 TH/MM3 (1.8-7.7); BASOPHIL % 0.7 % (0.0-2.0); EOSINOPHIL % 0.5 % (0.0-4.0); HEMATOCRIT 41.2 % (39.0-51.0); HEMO FLAGS DIFF FINAL; LYMPH % 33.5 % (9.0-44.0); LYMPHOCYTE # 2.3 TH/MM3 (1.0-4.8); MEAN CELL VOLUME 95.1 FL (80.0-100.0); MEAN CORPUSCULAR HEMOGLOBIN 33.8 PG (27.0-34.0); MEAN CORPUSCULAR HGB CONC 35.5 % (32.0-36.0); NEUT % 56.3 % (16.0-70.0); PLATELET COUNT 225 TH/MM3 (150-450); RED BLOOD COUNT 4.34 MIL/MM3 (4.50-5.90); RED CELL DISTRIBUTION WIDTH 13.8 % (11.6-17.2); WHITE BLOOD COUNT 6.8 TH/MM3 (4.0-11.0)
[2016-08-11 01:57] LABS: ALKALINE PHOSPHATASE 83 U/L (45-117); TOTAL BILIRUBIN ADULT 0.4 MG/DL (0.2-1.0)
[2016-08-11 02:01] LABS: ALT (GPT) 26 U/L (12-78); ANION GAP 10 MEQ/L (5-15); AST (GOT) 25 U/L (15-37); BICARBONATE 23.5 MEQ/L (21.0-32.0); BLOOD UREA NITROGEN 15 MG/DL (7-18); CHLORIDE 106 MEQ/L (98-107); GLOMERULAR FILTRATION RATE 63 ML/MIN (>89); SODIUM (NA) 139 MEQ/L (136-145)
[2016-08-11 02:07] LABS: ACETAMINOPHEN LESS THAN 2.0 MCG/ML (10.0-30.0); POTASSIUM 4.4 MEQ/L (3.5-5.1)
--- NOTE | 2016-08-11 02:28 | PD ---
Physical Exam Date Seen by Provider: Aug 11, 2016 Time Seen by Provider: 02:27 Data Data Last Documented VS Vital Signs Date Time Temp Pulse Resp B/P Pulse Ox O2 Delivery O2 Flow Rate FiO2 08/11/16 00:43 98.3 76 16 151/88 97 Orders Haloperidol Inj (Haldol Inj) (08/11/16 00:55) Lorazepam Inj (Ativan Inj) (08/11/16 00:55) Complete Blood Count With Diff (08/11/16 00:56) Psych Screen (08/11/16 00:56) Haloperidol Inj (Haldol Inj) (08/11/16 01:00) Lorazepam Inj (Ativan Inj) (08/11/16 01:00) Drug Screen, Random Urine (08/11/16 00:56) Diphenhydramine Inj (Benadryl Inj) (08/11/16 01:00) Diphenhydramine Inj (Benadryl Inj) (08/11/16 00:56) Alcohol (Ethanol) (08/11/16 00:57) Salicylates (Aspirin) (08/11/16 00:57) Tylenol (Acetaminophen) (08/11/16 00:57) ^ Sitter (08/11/16 01:05) Comprehensive Metabolic Panel (08/11/16 00:57) Labs Laboratory Tests Test 08/11/16 08/11/16 01:10 01:25 Urine Opiates Screen NEG Urine Barbiturates Screen NEG Urine Amphetamines Screen NEG Urine Benzodiazepines Screen NEG Urine Cocaine Screen POS Urine Cannabinoids Screen NEG White Blood Count 6.8 TH/MM3 Red Blood Count 4.34 MIL/MM3 Hemoglobin 14.6 GM/DL Hematocrit 41.2 % Mean Corpuscular Volume 95.1 FL Mean Corpuscular Hemoglobin 33.8 PG Mean Corpuscular Hemoglobin 35.5 % Concent Red Cell Distribution Width 13.8 % Platelet Count 225 TH/MM3 Mean Platelet Volume 8.0 FL Neutrophils (%) (Auto) 56.3 % Lymphocytes (%) (Auto) 33.5 % Monocytes (%) (Auto) 9.0 % Eosinophils (%) (Auto) 0.5 % Basophils (%) (Auto) 0.7 % Neutrophils # (Auto) 3.8 TH/MM3 Lymphocytes # (Auto) 2.3 TH/MM3 Monocytes # (Auto) 0.6 TH/MM3 Eosinophils # (Auto) 0.0 TH/MM3 Basophils # (Auto) 0.0 TH/MM3 CBC Comment DIFF FINAL Differential Comment Sodium Level 139 MEQ/L Potassium Level 4.4 MEQ/L Chloride Level 106 MEQ/L Carbon Dioxide Level 23.5 MEQ/L Anion Gap 10 MEQ/L Blood Urea Nitrogen 15 MG/DL Creatinine 1.19 MG/DL Estimat Glomerular Filtration 63 ML/MIN Rate Random Glucose 71 MG/DL Calcium Level 8.7 MG/DL Total Bilirubin 0.4 MG/DL Aspartate Amino Transf 25 U/L (AST/SGOT) Alanine Aminotransferase 26 U/L (ALT/SGPT) Alkaline Phosphatase 83 U/L Total Protein 7.5 GM/DL Albumin 3.7 GM/DL Salicylates Level 3.3 MG/DL Acetaminophen Level LESS THAN 2.0 MCG/ML Ethyl Alcohol Level 43 MG/DL [facility] Medical Record Reviewed: Yes Supervised Visit with ODILON: Yes Interpretation(s) Laboratory Tests Test 08/11/16 08/11/16 01:10 01:25 Urine Opiates Screen NEG Urine Barbiturates Screen NEG Urine Amphetamines Screen NEG Urine Benzodiazepines Screen NEG Urine Cocaine Screen POS Urine Cannabinoids Screen NEG White Blood Count 6.8 TH/MM3 Red Blood Count 4.34 MIL/MM3 Hemoglobin 14.6 GM/DL Hematocrit 41.2 % Mean Corpuscular Volume 95.1 FL Mean Corpuscular Hemoglobin 33.8 PG Mean Corpuscular Hemoglobin 35.5 % Concent Red Cell Distribution Width 13.8 % Platelet Count 225 TH/MM3 Mean Platelet Volume 8.0 FL Neutrophils (%) (Auto) 56.3 % Lymphocytes (%) (Auto) 33.5 % Monocytes (%) (Auto) 9.0 % Eosinophils (%) (Auto) 0.5 % Basophils (%) (Auto) 0.7 % Neutrophils # (Auto) 3.8 TH/MM3 Lymphocytes # (Auto) 2.3 TH/MM3 Monocytes # (Auto) 0.6 TH/MM3 Eosinophils # (Auto) 0.0 TH/MM3 Basophils # (Auto) 0.0 TH/MM3 CBC Comment DIFF FINAL Differential Comment Sodium Level 139 MEQ/L Potassium Level 4.4 MEQ/L Chloride Level 106 MEQ/L Carbon Dioxide Level 23.5 MEQ/L Anion Gap 10 MEQ/L Blood Urea Nitrogen 15 MG/DL Creatinine 1.19 MG/DL Estimat Glomerular Filtration 63 ML/MIN Rate Random Glucose 71 MG/DL Calcium Level 8.7 MG/DL Total Bilirubin 0.4 MG/DL Aspartate Amino Transf 25 U/L (AST/SGOT) Alanine Aminotransferase 26 U/L (ALT/SGPT) Alkaline Phosphatase 83 U/L Total Protein 7.5 GM/DL Albumin 3.7 GM/DL Salicylates Level 3.3 MG/DL Acetaminophen Level LESS THAN 2.0 MCG/ML Ethyl Alcohol Level 43 MG/DL Differential Diagnosis MDM: High Differential diagnoses: Schizophrenia, schizoaffective disorder, bipolar, anxiety, depression, adjustment reaction, mood disorder NOS, ODD, depressive disorder NOS, dementia, dementia with agitation, psychosis NOS, substance induced mood disorder, intermittent explosive disorder, Asperger syndrome, infection,electrolyte abnormality, malingering. Narrative Course Mental health screening discussed with the patient. Psychiatric screen ordered. The patient's been medically cleared. This is substance induced mood disorder Diagnosis Primary Impression: Substance induced mood disorder Scripts No Active Prescriptions or Reported Meds Condition: Stable Jack Breaux Aug 11, 2016 02:28
[2016-08-11 03:41] VITALS: BP 124/78; PULSE 70; RESP 19; O2SAT 96
[2016-08-11 06:31] VITALS: BP 135/87; PULSE 61; RESP 18; TEMP 97.4; O2SAT 98
[2016-08-11 11:30] VITALS: BP 132/86; PULSE 60; RESP 16; O2SAT 100
--- NOTE | 2016-08-11 14:36 | PD ---
History of Present Illness Chief Complaint: Psychiatric Symptoms Time Seen by Provider: 14:20 Travel History International Travel<30 Days: No Contact w/Intl Traveler<30days: No Known affected area: No Legal Status Legal Status: Casper Act Casper Act Signed By: Daisy Vivar History of Present Illness: History of Present Illness HPI Patient is a 55-year-old male with a reported history of bipolar disorder as well as substance use who presents to emergency room on a casper act initiated by SERAFIN. As per the report he stated to the police that he was suicidal and that he was off his bipolar meds and has been having suicidal statements and that he wants to kill himself. Upon arriving to the ED Patient refused to provide any information as well as being agitated and threatening to staff. staff "I'm not going to tell you anything." He received Haldol and Ativan in ED. Patient is seen in J pod. He has remained in behavioral control. Has remained in his room . Initiates no interaction. Black male who appears older than stated age. He is awake. Speech is clear. He is irritable and responds only minimally to questions. States " I'm here because my head is not right. I have been off my medication and I feel like I want to kill myself. I would walk in front of the train." He also reports that he has not been sleeping and that " my mind is dehydrated ". He refused to answer any other questions at this time. EMR is reviewed. He has presented to ED several times in the past month. He was sent to [facility] on Jun 24, 2016. He reports he was started on his medication including Abilify, Prozac and Trazodone but that he has not taken them in over a month. He would not provide any other information and turned around and closed his eyes. His toxicology is positive for cocaine and his BAL is 43. PFSH Past Medical History Cancer: Yes (MOUTH) Cardiovascular Problems: Yes (HTN) Diminished Hearing: No Hypertension: Yes Immunizations Current: Yes Tetanus Vaccination: Never Vaccinated Influenza Vaccination: Yes Past Surgical History Oral Surgery: Yes (TUMOR REMOVED FROM LEFT JAW) Psychiatric History Psychiatric History Hx Psychiatric Treatment: PATIENT STATES HE HAS A HISTORY OF BIPOLAR D/O, DEPRESSION AND ANXIETY. LAST ED VISIT FOR MOOD D/O 06/24/16. History of Inpatient Treatment: Yes ([facility] in Jun 2016) Guns or firearms in home: No Social History Patient refused to offer any information. As per record homeless. completed high school. Hx Alcohol Use: Yes (OCC) Hx Tobacco Use: Yes (5 CIG PER DAY) Hx Substance Use: Yes Substance Use Type: Alcohol, Crack (Positive screen ), Nicotine/Cigarettes Hx of Substance Use Treatment: No Family Psychiatric History None obtained as patient refused to answer. Allergies-Medications (Allergen,Severity, Reaction): Coded Allergies: No Known Allergies (Unverified , 08/11/16) Reported Meds & Prescriptions Reported Meds & Active Scripts Active No Active Prescriptions or Reported Medications Review of Systems ROS Limitations: Uncooperative, Refused Exam Alert: Yes [place]: Person, Place Mood: Angry Affect: Restricted Speech: Clear Eye Contact: None Memory Intact: Comment (unable to test) Hallucinations: Other (does not appear to be responding to any. ) Delusions: No Suicidal: Ideation (to jump in front of a train) Insight/Judgement poor. poor MDM Medical Decision Making Medical Record Reviewed: Yes Assessment/Plan 55 year old male with reported hx of bipolar disorder , non compliant with medication, positive cocaine use who presents to ED under a BA for suicidal ideation. Patient agitated in Ed requiring medication. In J pod he is only minimally cooperative, irritable but maintains behavioral control He continues to endorse suicidal ideation with intent to jump in front of a train. At this time he will be admitted to inpatient psychiatry for further observation, stabilization, initiate medication, and to maintain safety. Orders Haloperidol Inj (Haldol Inj) (08/11/16 00:55) Lorazepam Inj (Ativan Inj) (08/11/16 00:55) Complete Blood Count With Diff (08/11/16 00:56) Psych Screen (08/11/16 00:56) Haloperidol Inj (Haldol Inj) (08/11/16 01:00) Lorazepam Inj (Ativan Inj) (08/11/16 01:00) Drug Screen, Random Urine (08/11/16 00:56) Diphenhydramine Inj (Benadryl Inj) (08/11/16 01:00) Diphenhydramine Inj (Benadryl Inj) (08/11/16 00:56) Alcohol (Ethanol) (08/11/16 00:57) Salicylates (Aspirin) (08/11/16 00:57) Tylenol (Acetaminophen) (08/11/16 00:57) ^ Sitter (08/11/16 01:05) Comprehensive Metabolic Panel (08/11/16 00:57) Diet Regular Basic (08/11/16 Lunch) Results Vital Signs Date Time Temp Pulse Resp B/P Pulse Ox O2 Delivery O2 Flow Rate FiO2 08/11/16 11:30 60 16 132/86 100 08/11/16 06:48 61 18 08/11/16 06:31 97.4 61 18 135/87 98 Room Air 08/11/16 03:41 70 19 124/78 96 Room Air 08/11/16 00:43 98.3 76 16 151/88 97 Laboratory Tests Test 08/11/16 08/11/16 01:10 01:25 Urine Opiates Screen NEG Urine Barbiturates Screen NEG Urine Amphetamines Screen NEG Urine Benzodiazepines Screen NEG Urine Cocaine Screen POS Urine Cannabinoids Screen NEG White Blood Count 6.8 Red Blood Count 4.34 Hemoglobin 14.6 Hematocrit 41.2 Mean Corpuscular Volume 95.1 Mean Corpuscular Hemoglobin 33.8 Mean Corpuscular Hemoglobin 35.5 Concent Red Cell Distribution Width 13.8 Platelet Count 225 Mean Platelet Volume 8.0 Neutrophils (%) (Auto) 56.3 Lymphocytes (%) (Auto) 33.5 Monocytes (%) (Auto) 9.0 Eosinophils (%) (Auto) 0.5 Basophils (%) (Auto) 0.7 Neutrophils # (Auto) 3.8 Lymphocytes # (Auto) 2.3 Monocytes # (Auto) 0.6 Eosinophils # (Auto) 0.0 Basophils # (Auto) 0.0 CBC Comment DIFF FINAL Differential Comment Sodium Level 139 Potassium Level 4.4 Chloride Level 106 Carbon Dioxide Level 23.5 Anion Gap 10 Blood Urea Nitrogen 15 Creatinine 1.19 Estimat Glomerular Filtration 63 Rate Random Glucose 71 Calcium Level 8.7 Total Bilirubin 0.4 Aspartate Amino Transf 25 (AST/SGOT) Alanine Aminotransferase 26 (ALT/SGPT) Alkaline Phosphatase 83 Total Protein 7.5 Albumin 3.7 Salicylates Level 3.3 Acetaminophen Level LESS THAN 2.0 Ethyl Alcohol Level 43 Diagnosis Primary Impression: Substance induced mood disorder Additional Impression: Substance abuse Admitting Information Admitting Physician Requests: Admit (Dr. Genao ) Prescriptions No Active Prescriptions or Reported Meds Condition: Stable Problem Qualifiers Johanna Torres Aug 11, 2016 14:36
[2016-08-11] MEDS ORDERED: ALUMINUM/MAGNESIUM/SIMETH 30 ML CUP PO PRN (15:15)
[2016-08-11] MEDS ORDERED: ACETAMINOPHEN 325 MG TAB PO PRN (15:15)
[2016-08-11] MEDS ORDERED: MAGNESIUM HYDROXIDE SUSP 30 ML CUP PO PRN (15:15)
[2016-08-11 16:22] VITALS: BP 128/83; PULSE 68; RESP 18; TEMP 97.9; O2SAT 94
[2016-08-12 06:16] VITALS: BP 126/65; PULSE 62; RESP 17; TEMP 98.3; O2SAT 98
[2016-08-12 09:41] LABS: ANION GAP 6 MEQ/L (5-15); BICARBONATE 26.6 MEQ/L (21.0-32.0); BLOOD UREA NITROGEN 18 MG/DL (7-18); CHLORIDE 107 MEQ/L (98-107); GLOMERULAR FILTRATION RATE 57 ML/MIN (>89); HDL CHOLESTEROL 81.9 MG/DL (40.0-60.0); LDL CHOLESTEROL 45 MG/DL (0-99); SODIUM (NA) 140 MEQ/L (136-145)
[2016-08-12 13:44] LABS: HEMOGLOBIN A1a 1.1 %; HEMOGLOBIN A1b 1.5 %; HEMOGLOBIN Ao 85.1 %; HEMOGLOBIN P3 3.8 %
--- NOTE | 2016-08-12 14:23 | HHI.HP ---
Provisional Diagnosis Admission Date Aug 11, 2016 at 15:06 Mazon I. Adjustment disorder with mixed disturbance of emotion and conduct Certification of Person's Competence To Provide Express and Informed Consent I have personally examined Alex Dominique , a person being served at [facility] on, Aug 12, 2016 14:18. Express and informed consent means consent voluntarily given in writing, by a competent person, after sufficient explanation and disclosure of the subject matter involved to enable the person to make a knowing and willful decision without any element of force, fraud, deceit, duress, or other form of constraint or coercion. This person is 18 years of age or older, is not now known to be incompetent to consent to treatment with a guardian advocate, and does not have a health care surrogate or proxy currently making medical treatment decisions. I have found this person to be one of the following: [x] Competent to provide express and informed consent, as defined above, for voluntary admission to this facility and is competent to provide express and informed consent for treatment. He/she has the consistent capacity to make well reasoned, willful, and knowing decisions concerning his or her medical or mental health treatment. The person fully and consistently understands the purpose of the admission for examination/placement and is fully capable of personally exercising all rights assured under [place] [] Incompetent to provide express and informed consent to voluntary admission, and this is incompetent to provide express and informed consent to treatment. The person must be transferred to involuntary status and a petition for a guardian advocate filed with the Circuit Court. [] Refusing to provide express and informed consent to voluntary admission but is competent to provide express and informed consent for treatment. The person must be discharged or transferred to involuntary status. Form shall be completed within 24 hours of a person's arrival at the receiving facility and filed in the clinical record of each person: 1. Admitted on a voluntary basis 2. Permitted to provide express and informed consent to his/her own treatment 3. Allowed to transfer from involuntary to voluntary status 4. Prior to permitting a person to consent to his or her own treatment after having been previously found incompetent to consent to treatment. History of Present Illness Capacity: Has Capacity HPI Patient was admitted yesterday for making suicidal threats. Today he is in a much better mood although is not manic or psychotic. He got to attend the [facility] [employer] social this unit dose on Monday afternoon and he is very happy to leave. He is verbally abdulkadir for safety and demonstrates no evidence of psychotic thinking. This physician does feel that the patient abuses drugs and has personality issues. However, he does not meet Casper act criteria and he does not meet inpatient psychiatric criteria. Review of Systems ROS Limitations: Clinical Condition Except as stated in HPI: all other systems reviewed are Neg Past Psych History Psychological trauma history None Violence risk - others (6 mos) Minimal Violence risk - self (6 mos) Minimal Substance Abuse History Drugs/Alcohol past 12 months History of alcohol and polysubstance abuse. Past Family Social History Coded Allergies: No Known Allergies (Unverified , 08/11/16) No Active Prescriptions or Reported Meds Current Medications Medications (Trade) Dose Ordered Sig/Kvng Route Start Time Stop Time Status Last Admin (Tylenol) 650 mg Q4H PRN PO 08/11/16 15:15 (Milk Of Magnesia Liq) 30 ml DAILY PRN PO 08/11/16 15:15 (Mag-Al Plus Susp Liq) 30 ml Q6H PRN PO 08/11/16 15:15 Family History Positive for alcohol and polysubstance abuse. Social History Limited family support but the patient appears to not mind living on the street. Not currently employed. He tends to use his money for alcohol and drugs. Patient's Strengths (min. 2) Verbal and resilient. Physical Exam GENERAL: SKIN: Warm and dry. HEAD: Normocephalic. EYES: No scleral icterus. No injection or drainage. NECK: Supple, trachea midline. No JVD or lymphadenopathy. CARDIOVASCULAR: Regular rate and rhythm without murmurs, gallops, or rubs. RESPIRATORY: Breath sounds equal bilaterally. No accessory muscle use. GASTROINTESTINAL: Abdomen soft, non-tender, nondistended. MUSCULOSKELETAL: No cyanosis, or edema. BACK: Nontender without obvious deformity. No CVA tenderness. Vital Signs Vital Signs Date Time Temp Pulse Resp B/P Pulse Ox O2 Delivery O2 Flow Rate FiO2 08/12/16 06:16 98.3 62 17 126/65 98 08/11/16 06:31 Room Air I/O 08/11/16 08/11/16 08/12/16 08:00 16:00 00:00 Intake Total 360 ml Balance 360 ml Mental Status Examination Speech: Unremarkable Orientation: x3 Memory: Unremarkable Thought Process: Organized, Goal Directed Thought Content: Unremarkable Hallucination Type: None Attention and Concentration: Good Suicidal Ideation: No Previous Suicide Attempts: No Homicidal Ideation: No Previous Homicide Attempts: No Insight: Fair Judgement: WNL Affect: Good Mood: Appropriate Motor Activity: Normal gait Assessment & Plan Problem List: (1) Adjustment disorder with mixed disturbance of emotions and conduct ICD Code: F43.25 Assessment & Plan Estimated LOS: Less than 1 day. Days patient appears to be manipulative, abusing drugs and making suicidal threats to get his way. At this time he is calm and happy and well fed and wants to leave. He verbally contracts for safety. Cognition is intact and he has no psychosis. Dewayne Genao MD Aug 12, 2016 14:23
== END 2016-08-12 15:25 | disposition home or self-care (01) | DRG 882 ==
LOC: NEPA 00:19 → NEDA 15:06 → H260 15:50
PROVIDERS: ADMIT Psychiatry & Neurology Psychiatry; ATTEND Psychiatry & Neurology Psychiatry
DX: F43.25 Adjustment disorder with mixed disturbance of emotions and conduct (principal); R45.851 Suicidal ideations; I10 Essential (primary) hypertension; F31.9 Bipolar disorder, unspecified; Z59.0 Homelessness; Z72.0 Tobacco use
CPT/HCPCS: 80048; 80053; 80061; 80307; 83036; 85025; 96372; J1200; J1630; J2060

== ENCOUNTER 2016-08-15 07:25 | Inpatient (IN) | payer OTHER ==
[2016-08-15] MEDS ORDERED: LORazepam 2 MG/ML VIAL IM PRN ×2 (10:30)
[2016-08-15] MEDS ORDERED: ACETAMINOPHEN 325 MG TAB PO PRN (10:30)
[2016-08-15] MEDS ORDERED: LORazepam 1 MG TAB PO PRN ×2 (10:30)
[2016-08-15] MEDS ORDERED: ALUMINUM/MAGNESIUM/SIMETH 30 ML CUP PO PRN (10:30)
[2016-08-15] MEDS ORDERED: MAGNESIUM HYDROXIDE SUSP 30 ML CUP PO PRN (10:30)
[2016-08-15] MEDS ORDERED: LORazepam 0.5 MG TAB PO PRN (10:30)
[2016-08-15] MEDS ORDERED: LORazepam 2 MG TAB PO PRN (10:30)
[2016-08-15] MEDS ORDERED: FLUMAZENIL 0.5 MG/5 ML VIAL IV PUSH PRN (10:30)
[2016-08-15] MEDS ORDERED: LORazepam 2 MG/ML VIAL IV PUSH PRN ×4 (10:30)
[2016-08-15] MEDS: NICOTINE 21 MG/24 HR PATCH T-DERMAL SCH (11:00)
[2016-08-15 11:55] VITALS: BP 113/83; PULSE 73; RESP 16; TEMP 97.8; O2SAT 99
[2016-08-15 21:00] VITALS: BP 145/90; PULSE 90; RESP 18; TEMP 98.1; O2SAT 98
[2016-08-15] MEDS ORDERED: REMOVE OLD NICODERM (NICOTINE) PATCH TD SCH (21:00)
[2016-08-16 06:25] VITALS: BP 104/70; PULSE 62; RESP 18; TEMP 98.1; O2SAT 99
[2016-08-16 08:28] LABS: ANION GAP 8 MEQ/L (5-15); BLOOD UREA NITROGEN 20 MG/DL (7-18); CHLORIDE 108 MEQ/L (98-107); GLOMERULAR FILTRATION RATE 64 ML/MIN (>89); HDL CHOLESTEROL 67.9 MG/DL (40.0-60.0); LDL CHOLESTEROL 45 MG/DL (0-99); SODIUM (NA) 141 MEQ/L (136-145)
[2016-08-16] MEDS: NICOTINE 21 MG/24 HR PATCH T-DERMAL SCH (08:48)
--- NOTE | 2016-08-16 09:17 | HHI.HP ---
Provisional Diagnosis Admission Date Aug 15, 2016 at 09:59 Catherine I. Cocaine abuse F 14.10, cocaine dependency with cocaine induced mood disorder f 14.24 Certification of Person's Competence To Provide Express and Informed Consent I have personally examined Alex Dominique , a person being served at [facility] on, Aug 16, 2016 09:07. Express and informed consent means consent voluntarily given in writing, by a competent person, after sufficient explanation and disclosure of the subject matter involved to enable the person to make a knowing and willful decision without any element of force, fraud, deceit, duress, or other form of constraint or coercion. This person is 18 years of age or older, is not now known to be incompetent to consent to treatment with a guardian advocate, and does not have a health care surrogate or proxy currently making medical treatment decisions. I have found this person to be one of the following: [x] Competent to provide express and informed consent, as defined above, for voluntary admission to this facility and is competent to provide express and informed consent for treatment. He/she has the consistent capacity to make well reasoned, willful, and knowing decisions concerning his or her medical or mental health treatment. The person fully and consistently understands the purpose of the admission for examination/placement and is fully capable of personally exercising all rights assured under [place] [] Incompetent to provide express and informed consent to voluntary admission, and this is incompetent to provide express and informed consent to treatment. The person must be transferred to involuntary status and a petition for a guardian advocate filed with the Circuit Court. [] Refusing to provide express and informed consent to voluntary admission but is competent to provide express and informed consent for treatment. The person must be discharged or transferred to involuntary status. Form shall be completed within 24 hours of a person's arrival at the receiving facility and filed in the clinical record of each person: 1. Admitted on a voluntary basis 2. Permitted to provide express and informed consent to his/her own treatment 3. Allowed to transfer from involuntary to voluntary status 4. Prior to permitting a person to consent to his or her own treatment after having been previously found incompetent to consent to treatment. History of Present Illness Capacity: Has Capacity HPI Patient is a 55-year-old Afro-Moldovan male comes here under Casper act from [facility] initially going to complaining of some swelling in his left wrist Limited he suicidal ideation, intent to college a positive for cocaine. Patient chest here under the Casper act. Of interest patient was seen here on 08/12 visit [id number] Genao and released. At the present time patient sitting in his room. Patient seen by me with nurse and counselor Marie. Patient alert oriented making demands on us for transportation. He denies suicidality homicidality voices or visions says he wishes to go to [place] were has contacts friends. He says his bags are packed and he just wishes us to [place] take it on a Greyhound. He is somewhat superficial and silly. Though he denies suicidality homicidality voices or visions. Patient is a long history of polysubstance abuse. Of manipulation and perhaps some malingering related to mental health system. In any Event at this time patient does not meet criteria for inpatient psychiatric hospitalization I will lift the Casper act. Patient to be discharged from self will be given bus passes and the ground reservation for this afternoon to travel to [place]. No Rx by me. Is to follow-up with mental health services and subsequent abuse services in the community Review of Systems Except as stated in HPI: all other systems reviewed are Neg Past Psych History Psychological trauma history Patient denies Violence risk - others (6 mos) Denies Violence risk - self (6 mos) Is made suicidal statements though it appears tomorrow for manipulative malingering nature Substance Abuse History Drugs/Alcohol past 12 months Patient active cocaine abuser Past Family Social History Coded Allergies: No Known Allergies (Unverified , 08/11/16) Past Medical History Medically cleared to [facility] No Active Prescriptions or Reported Meds Current Medications Medications (Trade) Dose Ordered Sig/Kvng Route Start Time Stop Time Status Last Admin (Ativan) 1 mg Q6H PRN PO 08/15/16 10:30 (Ativan Inj) 1 mg Q6H PRN IM 08/15/16 10:30 (Tylenol) 650 mg Q4H PRN PO 08/15/16 10:30 08/15/16 20:31 (Milk Of Magnesia Liq) 30 ml DAILY PRN PO 08/15/16 10:30 (Mag-Al Plus Susp Liq) 30 ml Q6H PRN PO 08/15/16 10:30 (Habitrol 21 Mg Patch.24 Hr) 1 patch DAILY T-DERMAL 08/15/16 10:30 (Romazicon Inj) 0.2 mg Q1M PRN IV PUSH 08/15/16 10:30 (Ativan) 1 mg Q4H PRN PO 08/15/16 10:30 (Ativan Inj) 1 mg Q4H PRN IV PUSH 08/15/16 10:30 (Ativan) 2 mg Q2H PRN PO 08/15/16 10:30 08/15/16 21:41 (Ativan Inj) 2 mg Q2H PRN IV PUSH 08/15/16 10:30 (Ativan Inj) 2 mg Q1H PRN IV PUSH 08/15/16 10:30 (Ativan Inj) 2 mg Q15M PRN IV PUSH 08/15/16 10:30 Miscellaneous Information 1 HS TD 08/15/16 21:00 Family History Unknown at this time Social History Patient single active cocaine addict Patient's Strengths (min. 2) Patient verbal able to access health care Physical Exam Patient seen screened for [facility] reviewed and agreed with Vital Signs Vital Signs Date Time Temp Pulse Resp B/P Pulse Ox O2 Delivery O2 Flow Rate FiO2 08/16/16 06:25 98.1 62 18 104/70 99 Mental Status Examination W thin slender Afro-Moldovan male somewhat superficial and silly though cooperative with good eye contact Appearance Somewhat disheveled Speech: Rapid Orientation: x3 Memory: Unremarkable Thought Process: Logical, Linear Thought Content: Unremarkable Hallucination Type: None Attention and Concentration: Other (fair) Suicidal Ideation: No (deny) Previous Suicide Attempts: No Homicidal Ideation: No (denies) Previous Homicide Attempts: No Insight: Poor Judgement: Poor Affect: Other (slight increase range and intensity) Mood: Euthymic Motor Activity: Normal gait Assessment & Plan Problem List: (1) Cocaine abuse ICD Code: F14.10 (2) Cocaine dependence with cocaine-induced mood disorder ICD Code: F14.24 Assessment & Plan Estimated LOS: days this time patient does not meet Casper criteria will lift Casper act allow patient to be discharged from self who be given bus passes and Greyhound pass to [place] per his request, no Rx by me follow-up mental health services and addiction services of the community Discharge Planning See above Request HC Surrog/Guard Advoc?: No Caliendo,Jon E. MD Aug 16, 2016 09:17
--- NOTE | 2016-08-16 09:22 | HHI.DS ---
Psychiatry Discharge Summary Inpatient Psychiatric care?: Yes Advance Directive: No Reason Not Provided: Patient declined to provide at this time. Mental Health AdvanceDirective: No Health Care Proxy: No Admission Admission Date Aug 15, 2016 at 09:59 Admission Diagnosis: (1) Cocaine abuse ICD Code: F14.10 (2) Cocaine dependence with cocaine-induced mood disorder ICD Code: F14.24 Brief History Patient is a 55-year-old Afro-Singaporean male comes here under Casper act from [facility] initially going to complaining of some swelling in his left wrist Limited he suicidal ideation, intent to college a positive for cocaine. Patient chest here under the Casper act. Of interest patient was seen here on 08/12 visit [id number] screened [address] Genao and released. At the present time patient sitting in his room. Patient seen by me with nurse and counselor Marie. Patient alert oriented making demands on us for transportation. He denies suicidality homicidality voices or visions says he wishes to go to [place] were has contacts friends. He says his bags are packed and he just wishes us to [place] take it on a Greyhound. He is somewhat superficial and silly. Though he denies suicidality homicidality voices or visions. Patient is a long history of polysubstance abuse. Of manipulation and perhaps some malingering related to mental health system. In any Event at this time patient does not meet criteria for inpatient psychiatric hospitalization I will lift the Casper act. Patient to be discharged from self will be given bus passes and the ground reservation for this afternoon to travel to [place]. No Rx by me. Is to follow-up with mental health services and subsequent abuse services in the community Tobacco Use In Past 30 Days: 5 or More Cigarettes/Day Alcohol Use: 4 or More Times Per Week Hospital Course Please see brief history above patient does not meet Casper criteria, will lift Casper act patient denies suicidality homicidality voices or visions just wishes to go to [place]. Patient to be discharged to himself, to be given bus passes and Greyhound past 2 [place]. No Rx by me to follow-up in the community mental health and addiction services Results Blood Pressure 104 / 70 Vital Signs Date Time Temp Pulse Resp B/P Pulse Ox O2 Delivery O2 Flow Rate FiO2 08/16/16 06:25 98.1 62 18 104/70 99 Laboratory Tests Test 08/16/16 07:35 Chloride Level 108 MEQ/L (98-107) Blood Urea Nitrogen 20 MG/DL (7-18) Estimat Glomerular Filtration 64 ML/MIN (>89) Rate HDL Cholesterol 67.9 MG/DL (40.0-60.0) Laboratory Results Test 08/16/16 07:35 Triglycerides Level 117 MG/DL (42-150) Cholesterol Level 136 MG/DL (120-200) LDL Cholesterol 45 MG/DL (0-99) HDL Cholesterol 67.9 MG/DL (40.0-60.0) Summary of Procedures None done Pending results at discharge: No Medications # of Antipsychotic meds at D/C: 0 Approp Antipsych med options 1 - Minimum of three failed multiple trials of monotherapy. 2 - Documented plan to taper to monotherapy due to previous use of multiple meds OR cross-taper in progress at D/C. 3 - Documentation of augmentation of Clozapine. 4 - Justification other than those listed in allowable values 1-3, document here : Discharge Discharge Date: Aug 16, 2016 Discharge Diagnosis: (1) Cocaine abuse Diagnosis: Secondary ICD Code: F14.10 (2) Cocaine dependence with cocaine-induced mood disorder Diagnosis: Principal ICD Code: F14.24 Mental Status Exam at Disch Alert oriented Afro-Singaporean male, is normoactive, mood is euthymic to somewhat elevated slight increase range intensity was affect. Speech regular rhythm somewhat increased no formal thought disorders. Insight and judgment poor cognition is grossly intact in auditory or visual hallucinations no delusions noted Pt Condition on Discharge: Stable Discharge Disposition: Discharge Home Discharge Instructions Diet Instructions: As Tolerated, No Restrictions Activities you can perform: Regular-No Restrictions Scheduled Appointment: follow-up mental health services addiction services in [facility] Discharge Time > 30 minutes Discharge/Advance Care Plan Health Problems: (1) Cocaine abuse (2) Cocaine dependence with cocaine-induced mood disorder Goals to promote your health * To prevent worsening of your condition and complications * To maintain your health at the optimal level Directions to meet your goals Take your medications as prescribed Follow your dietary instruction Follow activity as directed Keep your appointments as scheduled Take your immunizations and boosters as scheduled If your symptoms worsen call your PCP, if no PCP go to Urgent Care Center or Emergency Room For 12/12 questions related to your inpatient stay or results of tests pending at discharge, please contact Dr. Jon Gerber at Smoking is Dangerous to Your Health. Avoid second hand smoking Jon Gerber MD Aug 16, 2016 09:22
[2016-08-16 16:01] LABS: HEMOGLOBIN A1a 0.9 %; HEMOGLOBIN A1b 1.5 %
== END 2016-08-16 10:40 | disposition home or self-care (01) | DRG 897 ==
LOC: H260 09:59
PROVIDERS: ADMIT Psychiatry & Neurology Psychiatry; ATTEND Psychiatry & Neurology Psychiatry
DX: F14.24 Cocaine dependence with cocaine-induced mood disorder (principal); Z76.5 Malingerer [conscious simulation]; Z72.0 Tobacco use
CPT/HCPCS: 80048; 80061; 83036

== ENCOUNTER 2016-08-26 08:51 | Emergency (ER) | payer OTHER ==
[~2016-08-26] VITALS: Ht 185.4 cm; Wt 68.0 kg
[2016-08-26 08:53] VITALS: BP 127/70; PULSE 82; RESP 16; TEMP 98.2; O2SAT 98
[2016-08-26 09:43] LABS: AUTOMATED NEUTROPHIL # 4.1 TH/MM3 (1.8-7.7); BASOPHIL % 0.7 % (0.0-2.0); EOSINOPHIL % 0.5 % (0.0-4.0); HEMATOCRIT 42.5 % (39.0-51.0); HEMO FLAGS DIFF FINAL; LYMPH % 25.8 % (9.0-44.0); LYMPHOCYTE # 1.6 TH/MM3 (1.0-4.8); MEAN CELL VOLUME 95.2 FL (80.0-100.0); MEAN CORPUSCULAR HEMOGLOBIN 33.3 PG (27.0-34.0); MONO % 5.9 % (0.0-8.0); NEUT % 67.1 % (16.0-70.0); PLATELET COUNT 241 TH/MM3 (150-450); RED BLOOD COUNT 4.47 MIL/MM3 (4.50-5.90); RED CELL DISTRIBUTION WIDTH 13.7 % (11.6-17.2); WHITE BLOOD COUNT 6.1 TH/MM3 (4.0-11.0)
[2016-08-26 09:55] LABS: ANION GAP 9 MEQ/L (5-15)
[2016-08-26 09:59] LABS: ALKALINE PHOSPHATASE 87 U/L (45-117); ALT (GPT) 28 U/L (12-78); AST (GOT) 33 U/L (15-37); BICARBONATE 24.4 MEQ/L (21.0-32.0); BLOOD UREA NITROGEN 19 MG/DL (7-18); CHLORIDE 107 MEQ/L (98-107); GLOMERULAR FILTRATION RATE 57 ML/MIN (>89); SODIUM (NA) 140 MEQ/L (136-145); TOTAL BILIRUBIN ADULT 0.8 MG/DL (0.2-1.0)
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
[2016-08-26 11:32] LABS: AMPHETAMINE, URINE NEG (NEG); BARBITURATES, URINE NEG (NEG); COCAINE, URINE POS (NEG)
[2016-08-26 18:52] VITALS: BP 118/66; PULSE 75; RESP 20; TEMP 98.8; O2SAT 99
[2016-08-26 22:26] VITALS: BP 131/82; PULSE 53; RESP 18
[2016-08-27 01:52] VITALS: BP 124/74; PULSE 51; RESP 18; O2SAT 97
[2016-08-27 06:26] VITALS: BP 141/79; PULSE 57; RESP 10; RESP 17; O2SAT 100
== END 2016-08-27 10:33 | disposition home or self-care (01) ==
LOC: NEPC 08:51 → NEPJ 08-27 10:33
DX: R45.851 Suicidal ideations (principal); F14.10 Cocaine abuse, uncomplicated; I10 Essential (primary) hypertension; Z72.0 Tobacco use; Z85.89 Personal history of malignant neoplasm of other organs and systems
CPT/HCPCS: 80053; 80307; 85025; 99284

== ENCOUNTER 2017-02-22 00:20 | Emergency (ER) | payer MEDICAID, OTHER ==
[2017-02-22 00:35] VITALS: BP 133/85; PULSE 68; RESP 18; TEMP 97.8; O2SAT 100
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
[2017-02-22 09:46] VITALS: BP 118/72; PULSE 65; RESP 16; O2SAT 96
[2017-02-22 14:57] VITALS: BP 123/72; PULSE 58; RESP 16; O2SAT 100
[2017-02-22 18:50] VITALS: BP 118/77; PULSE 54; RESP 16; O2SAT 100
[2017-02-22 22:45] VITALS: BP 151/95; PULSE 75; RESP 16; O2SAT 96
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
--- NOTE | 2017-02-23 08:08 | PD ---
Physical Exam Time Seen by Provider: 08:02 FIORDALIZA Lombardi has evaluated the patient and cleared the patient for discharge. Data Data Last Documented VS Vital Signs Date Time Temp Pulse Resp B/P (MAP) Pulse Ox O2 Delivery O2 Flow Rate FiO2 02/22/17 22:45 75 16 151/95 (113) 96 Room Air 02/22/17 00:35 97.8 Orders Orders Psych Screen (02/22/17 01:00) Drug Screen, Random Urine (02/22/17 01:00) Diet Regular Basic (02/22/17 Breakfast) Diet Regular Basic (02/22/17 Lunch) Diet Regular Basic (02/22/17 Dinner) Diet Regular Basic (02/23/17 Breakfast) Labs Laboratory Tests Test 02/22/17 01:10 Urine Opiates Screen NEG Urine Barbiturates Screen NEG Urine Amphetamines Screen NEG Urine Benzodiazepines Screen POS Urine Cocaine Screen POS Urine Cannabinoids Screen NEG MDM Supervised Visit with ODILON: No FIORDALIZA Linder has evaluated the patient, cleared the patient and the patient will be discharged home. Patient contracts safety. Denies suicidal or homicidal ideations. Patient will be provided community resource packet to [facility]/ [facility] for follow-up. Has friends and family for support. Patient is medically cleared for discharge. Diagnosis Primary Impression: Medical clearance for psychiatric admission Additional Impressions: Substance abuse Malingering Inguinal hernia Qualified Codes: K40.90 - Unilateral inguinal hernia, without obstruction or gangrene, not specified as recurrent Referrals: [facility] (Out patient) [facility] Primary Care Physician Psychiatrist Carol ASHRAF Behavioral Patient Instructions: General Instructions, Polysubstance Abuse (ED) Additional Instruction: Contract safety to your self and others Stop using drugs Follow-up with psychiatry Follow-up with primary care provider Follow-up with Akil Negro Return to the emergency department immediately with worsening of symptoms Med/Other Pt SpecificInfo: No Meds Exist/No RX given Scripts No Active Prescriptions or Reported Meds Disposition: 01 DISCHARGE HOME Condition: Stable Maye June Feb 23, 2017 08:08
[2017-02-23 08:11] VITALS: BP 151/95; PULSE 75; RESP 16; O2SAT 96
[2017-02-24] MEDS ORDERED: IBUP-232 PO (01:56)
== END 2017-02-23 12:11 | disposition home or self-care (01) ==
LOC: NEPD 00:20 → NEPJ 02-23 12:11
DX: F14.24 Cocaine dependence with cocaine-induced mood disorder (principal); K40.90 Unilateral inguinal hernia, without obstruction or gangrene, not specified as recurrent; F31.9 Bipolar disorder, unspecified; F20.9 Schizophrenia, unspecified; I10 Essential (primary) hypertension; F17.210 Nicotine dependence, cigarettes, uncomplicated; Z59.0 Homelessness; Z76.5 Malingerer [conscious simulation]
CPT/HCPCS: 80307; 99284

== ENCOUNTER 2017-02-23 23:45 | Emergency (ER) | payer MEDICAID ==
[~2017-02-23] VITALS: Ht 185.4 cm; Wt 72.5 kg
[2017-02-23 23:47] VITALS: BP 120/83; PULSE 82; RESP 16; TEMP 97.7; O2SAT 98
--- NOTE | 2017-02-24 00:24 | PD ---
HPI Chief Complaint: Abdominal Pain Time Seen by Provider: 00:13 Travel History International Travel<30 days: No Contact w/Intl Traveler<30days: No Traveled to known affect area: No History of Present Illness HPI The patient is a 56-year-old male who presents emergency department complaining of right testicular and inguinal pain since earlier today. The patient complains of pain located over the right testicle radiating up into the right aspect of the groin. The patient denies any dysuria, frequency, or urgency. The pain is sharp, intermittent, worse with palpation, and not alleviated with lying supine. The patient denies any known trauma to the scrotum or right lower aspect of the abdomen. The patient denies any associated nausea, vomiting, diarrhea, abdominal pain, or change in bowel habits. Symptoms are mild to moderate without any alleviating or exacerbating factors. PFSH Past Medical History Bipolar Disorder: Yes Depression: Yes Cancer: Yes (MOUTH) Cardiovascular Problems: Yes (HTN) Diminished Hearing: No Hypertension: Yes Immunizations Current: Yes Schizophrenia: Yes Tetanus Vaccination: < 5 Years Influenza Vaccination: Yes Past Surgical History Oral Surgery: Yes (TUMOR REMOVED FROM LEFT JAW 1985) Social History Alcohol Use: Yes (OCC) Tobacco Use: Yes (5 CIG PER DAY) Substance Use: Yes Allergies-Medications (Allergen,Severity, Reaction): Coded Allergies: No Known Allergies (Unverified , 02/24/17) Reported Meds & Prescriptions Reported Meds & Active Scripts Active No Active Prescriptions or Reported Medications Review of Systems Except as stated in HPI: all other systems reviewed are Neg General / Constitutional: No: Fever, Chills Cardiovascular: No: Chest Pain or Discomfort Respiratory: No: Shortness of Breath Gastrointestinal: No: Nausea, Vomiting, Diarrhea, Abdominal Pain Genitourinary: Positive: Pelvic Pain, Other (as noted in the history of present illness), No: Dysuria Skin: No Rash Psychiatric: Positive: Disorder of Thought (history of schizophrenia and bipolar affective disorder) Physical Exam Narrative GENERAL: Awake, alert, nontoxic-appearing 56-year-old male who appears his stated age and is in no acute respiratory distress. SKIN: Focused skin assessment warm/dry. HEAD: Atraumatic. Normocephalic. EYES: Pupils equal and round. No scleral icterus. No injection or drainage. ENT: No nasal bleeding or discharge. Mucous membranes pink and moist. NECK: Trachea midline. No JVD. CARDIOVASCULAR: Regular rate and rhythm. No murmur appreciated. RESPIRATORY: No accessory muscle use. Clear to auscultation. Breath sounds equal bilaterally. GASTROINTESTINAL: Abdomen soft, non-tender, nondistended. No rebound tenderness. No guarding or rigidity. Genitourinary: Uncircumcised phallus. The left testicle small, nontender. The right testicle is larger than the left testicle, tender to palpation, mild tenderness of the epididymis. No obvious inguinal hernia on exam. MUSCULOSKELETAL: No obvious deformities. No clubbing. No cyanosis. No edema. NEUROLOGICAL: Awake and alert. No obvious cranial nerve deficits. Motor grossly within normal limits. Normal speech. PSYCHIATRIC: Odd affect. Data Data Last Documented VS Vital Signs Date Time Temp Pulse Resp B/P (MAP) Pulse Ox O2 Delivery O2 Flow Rate FiO2 02/23/17 23:47 97.7 82 16 120/83 (95) 98 Room Air Orders Orders Complete Blood Count With Diff (02/24/17:18) Comprehensive Metabolic Panel (02/24/17:18) Ua Includes Microscopic (02/24/17:18) Gc And Chlamydia Pcr (02/24/17:18) Us Testicles W Doppler (02/24/17:18) Iv Access Insert/Monitor (02/24/17:18) Ketorolac Inj (Toradol Inj) (02/24/17 00:30) Ondansetron Inj (Zofran Inj) (02/24/17 00:30) Sodium Chloride 0.9% Flush (Ns Flush) (02/24/17 00:30) Morphine Inj (Morphine Inj) (02/24/17 00:30) Sodium Chlorid 0.9% 500 Ml Inj (Ns 500 M (02/24/17 00:30) Labs Laboratory Tests Test 02/24/17 00:30 White Blood Count 6.9 TH/MM3 Red Blood Count 4.49 MIL/MM3 Hemoglobin 15.3 GM/DL Hematocrit 44.0 % Mean Corpuscular Volume 97.9 FL Mean Corpuscular Hemoglobin 34.0 PG Mean Corpuscular Hemoglobin Concent 34.7 % Red Cell Distribution Width 13.7 % Platelet Count 243 TH/MM3 Mean Platelet Volume 8.2 FL Neutrophils (%) (Auto) 65.1 % Lymphocytes (%) (Auto) 25.6 % Monocytes (%) (Auto) 8.3 % Eosinophils (%) (Auto) 0.4 % Basophils (%) (Auto) 0.6 % Neutrophils # (Auto) 4.5 TH/MM3 Lymphocytes # (Auto) 1.8 TH/MM3 Monocytes # (Auto) 0.6 TH/MM3 Eosinophils # (Auto) 0.0 TH/MM3 Basophils # (Auto) 0.0 TH/MM3 CBC Comment DIFF FINAL Differential Comment Urine Color LIGHT-YELLOW Urine Turbidity CLEAR Urine pH 5.5 Urine Specific [place] 1.004 Urine Protein NEG mg/dL Urine Glucose (UA) NEG mg/dL Urine Ketones NEG mg/dL Urine Occult Blood NEG Urine Nitrite NEG Urine Bilirubin NEG Urine Urobilinogen LESS THAN 2.0 MG/DL Urine Leukocyte Esterase SMALL Urine RBC LESS THAN 1 /hpf Urine WBC 3 /hpf Microscopic Urinalysis Comment CULT NOT INDICATED Blood Urea Nitrogen 21 MG/DL Creatinine 1.20 MG/DL Random Glucose 79 MG/DL Total Protein 7.8 GM/DL Albumin 3.6 GM/DL Calcium Level 8.4 MG/DL Alkaline Phosphatase 89 U/L Aspartate Amino Transf (AST/SGOT) 39 U/L Alanine Aminotransferase (ALT/SGPT) 28 U/L Total Bilirubin 0.5 MG/DL Sodium Level 136 MEQ/L Potassium Level 5.2 MEQ/L Chloride Level 103 MEQ/L Carbon Dioxide Level 26.2 MEQ/L Anion Gap 7 MEQ/L Estimat Glomerular Filtration Rate 62 ML/MIN MDM Medical Decision Making Medical Screen Exam Complete: Yes Emergency Medical Condition: Yes Medical Record Reviewed: Yes Interpretation(s) Ultrasound of the testicle with Doppler reveals small right varicocele. Otherwise, unremarkable examination. Differential Diagnosis Differential diagnosis includes testicular torsion, testicular appendix torsion , epididymitis, hydrocele, varicocele, nephrolithiasis, UTI, inguinal hernia. Narrative Course IV was established, labs are drawn and sent, and the patient was placed on cardiac telemetry monitoring and continuous pulse oximetry monitoring. Ultrasound of the scrotum was obtained. The patient was administered morphine, Toradol, Zofran, and IV fluids. UA was sent to lab. UA is unremarkable. Labs are unremarkable. Ultrasound reveals varicocele. The patient is apprised to follow-up with urology and an outpatient basis or his primary physician on an outpatient basis. Diagnosis Primary Impression: Right varicocele Additional Impression: Scrotal pain Patient Instructions: General Instructions, Narcotic given in the ED Additional Instructions: Please provide the patient a copy of his ultrasound results and lab results at discharge. Follow-up with her primary physician and/or urologist. Return if symptoms worsen or progress. Med/Other Pt SpecificInfo: Prescription(s) given Scripts Ibuprofen (Ibuprofen) 600 Mg Tab 600 MG PO Q6H Y for Pain/Inflammation, #20 TAB 0 Refills Prov: Cecil Sawant MD 02/24/17 Disposition: 01 DISCHARGE HOME Condition: Stable Cecil Sawant MD Feb 24, 2017 00:24
[2017-02-24] MEDS ORDERED: SODIUM CHLORIDE 0.9% FLUSH 10 ML FLUSH IVF PRN (00:30)
[2017-02-24] MEDS ORDERED: SODIUM CHLORID 0.9% 500 ML INJ 500 ML IV ONE (00:30)
[2017-02-24] MEDS ORDERED: ONDANSETRON HCL 4 MG/2 ML VIAL IVP ONE (00:30)
[2017-02-24] MEDS ORDERED: KETOROLAC TROMETHAMINE 30 MG/ML (IVP) VIAL IVP ONE (00:30)
[2017-02-24] MEDS ORDERED: MORPHINE SULFATE 2 MG/ML INJ IV PUSH ONE (00:30)
[2017-02-24 00:58] LABS: AUTOMATED NEUTROPHIL # 4.5 TH/MM3 (1.8-7.7); BASOPHIL % 0.6 % (0.0-2.0); EOSINOPHIL % 0.4 % (0.0-4.0); HEMO FLAGS DIFF FINAL; LYMPH % 25.6 % (9.0-44.0); LYMPHOCYTE # 1.8 TH/MM3 (1.0-4.8); MEAN CELL VOLUME 97.9 FL (80.0-100.0); MEAN CORPUSCULAR HGB CONC 34.7 % (32.0-36.0); MONO % 8.3 % (0.0-8.0); NEUT % 65.1 % (16.0-70.0); PLATELET COUNT 243 TH/MM3 (150-450); RED BLOOD COUNT 4.49 MIL/MM3 (4.50-5.90); RED CELL DISTRIBUTION WIDTH 13.7 % (11.6-17.2); WHITE BLOOD COUNT 6.9 TH/MM3 (4.0-11.0)
[2017-02-24 00:59] LABS: BLOOD, URINE NEG (NEG); COMMENT (UR) CULT NOT INDICATED; GLUCOSE,URINE NEG (NEG); KETONE, URINE NEG (NEG); NITRITE,URINE NEG (NEG); PH, URINE 5.5 (5.0-8.5); URINE COLOR LIGHT-YELLOW (YELLW/STRAW)
--- NOTE | 2017-02-24 01:18 | RADRPT ---
EXAM DATE/TIME: 02/24/2017 00:46 [facility] COMPARISON: No previous studies available for comparison. INDICATIONS : Right testicular pain. MEDICAL HISTORY : Hypertension. Schizophrenia. Bipolar disorder. Depression. Carcinoma, mouth. SURGICAL HISTORY : Tumor removed from jaw. ENCOUNTER: Initial ACUITY: 3 days PAIN SCORE: 8/10 LOCATION: Bilateral tesicles. MEASUREMENTS: RIGHT TESTICLE: 3.9 x 2.6 x 1.6cm LEFT TESTICLE: 2.8 x 1.7 x 1.1cm FINDINGS: RIGHT TESTICLE: Homogeneous echotexture without intra or extratesticular mass. Blood flow is symmetric and within no rmal limits. No hydrocele. Small varicocele. Epididymis is within normal limits. LEFT TESTICLE: Homogeneous echotexture without intra or extratesticular mass. Blood flow is symmetric and within no rmal limits. No hydrocele or varicocele. Epididymis is within normal limits. SCROTUM: Within normal limits. CONCLUSION: 1. Small right varicocele. Otherwise, unremarkable exam. Chi Ziegler Jr., MD on February 24, 2017 at 1:14 Board Certified Radiologist. This report was verified electronically.
[2017-02-24 01:33] LABS: ALKALINE PHOSPHATASE 89 U/L (45-117); TOTAL BILIRUBIN ADULT 0.5 MG/DL (0.2-1.0)
[2017-02-24 01:39] LABS: ALT (GPT) 28 U/L (12-78); ANION GAP 7 MEQ/L (5-15); AST (GOT) 39 U/L (15-37); BICARBONATE 26.2 MEQ/L (21.0-32.0); BLOOD UREA NITROGEN 21 MG/DL (7-18); CHLORIDE 103 MEQ/L (98-107); GLOMERULAR FILTRATION RATE 62 ML/MIN (>89); POTASSIUM 5.2 MEQ/L (3.5-5.1); SODIUM (NA) 136 MEQ/L (136-145)
[2017-02-24] MEDS ORDERED: IBUP-232 PO (01:56)
[2017-02-24 02:41] LABS: CHLAMYDIA PCR NOT DETECTED (NOT DETECT); NEISSERIA PCR NOT DETECTED (NOT DETECT)
[2017-02-24 03:01] VITALS: BP 121/78
== END 2017-02-24 03:16 | disposition home or self-care (01) ==
LOC: NEPE 23:45
DX: I86.1 Scrotal varices (principal); N50.82 Scrotal pain
CPT/HCPCS: 76870; 80053; 81001; 85025; 87491; 87591; 93975; 96374; 96375; 99285; J1885; J2270; J2405; J7040

== ENCOUNTER 2017-02-25 00:38 | Emergency (ER) | payer MEDICAID ==
[~2017-02-25] VITALS: Ht 185.4 cm; Wt 70.0 kg
[~2017-02-25 00:38] MED LIST changes: -ARIP1TAB5 PO; -FLUO-1 PO; +IBUP-232 PO; -TRAZ100T4 PO
[2017-02-25 00:39] VITALS: BP 159/77; PULSE 78; RESP 16; TEMP 98.5; O2SAT 98
[2017-02-25] MEDS ORDERED: IBUPROFEN 800 MG TAB PO ONE (01:30)
[2017-02-25] MEDS ORDERED: LORazepam 0.5 MG TAB PO ONE (01:30)
--- NOTE | 2017-02-25 01:37 | PD ---
HPI Chief Complaint: Psychiatric Symptoms Time Seen by Provider: : Travel History International Travel<30 days: No Contact w/Intl Traveler<30days: No Traveled to known affect area: No History of Present Illness HPI Patient is a 56-year-old male that presented to the emergency for psychiatric evaluation voluntarily. He states his head is messed up. He reports suicidal and homicidal ideations. He will not elaborate. He does state that he will "pop a cap into those mother fuckers". Patient is not forthcoming with any other information, he appears agitated. PFSH Past Medical History Bipolar Disorder: Yes Depression: Yes Cancer: Yes (MOUTH) Diminished Hearing: No Hypertension: Yes Immunizations Current: Yes Schizophrenia: Yes Past Surgical History Oral Surgery: Yes (TUMOR REMOVED FROM LEFT JAW 1985) Social History Alcohol Use: Yes (ALL DAY EVERY DAY) Tobacco Use: Yes (5 CIG PER DAY) Substance Use: Yes (CRACK..SMOKED $6400 WORTH TODAY) Allergies-Medications (Allergen,Severity, Reaction): Coded Allergies: No Known Allergies (Unverified , 02/25/17) Reported Meds & Prescriptions Reported Meds & Active Scripts Active Ibuprofen 600 Mg Tab 600 Mg PO Q6H PRN Review of Systems Except as stated in HPI: all other systems reviewed are Neg Psychiatric: Positive: Suicidal Ideations, Mood Disorder, Substance Abuse, Homicidal Ideation Physical Exam Exam Limitations: Intoxication Narrative GENERAL: Thin, well-developed, alert gentleman. Appears agitated, defensive. SKIN: Warm and dry. HEAD: Atraumatic. Normocephalic. EYES: Pupils equal and round. No scleral icterus. No injection or drainage. ENT: No nasal bleeding or discharge. Mucous membranes pink and moist. NECK: Trachea midline. No JVD. CARDIOVASCULAR: Regular rate and rhythm. RESPIRATORY: No accessory muscle use. Clear to auscultation. Breath sounds equal bilaterally. GASTROINTESTINAL: Abdomen soft, non-tender, nondistended. Hepatic and splenic margins not palpable. Right inguinal hernia, easily reducible. MUSCULOSKELETAL: Extremities without clubbing, cyanosis, or edema. No obvious deformities. NEUROLOGICAL: Awake and alert. No obvious cranial nerve deficits. Motor grossly within normal limits. Five out of 5 muscle strength in the arms and legs. Normal speech. PSYCHIATRIC: Appropriate mood and affect; insight and judgment normal. Data Data Last Documented VS Vital Signs Date Time Temp Pulse Resp B/P (MAP) Pulse Ox O2 Delivery O2 Flow Rate FiO2 02/25/17 00:39 98.5 78 16 159/77 (104) 98 Room Air Orders Orders Alcohol (Ethanol) (02/25/17 01:19) Psych Screen (02/25/17 01:19) Ibuprofen (Motrin) (02/25/17 01:30) Lorazepam (Ativan) (02/25/17 01:30) MDM Medical Decision Making Medical Screen Exam Complete: Yes Emergency Medical Condition: Yes Interpretation(s) Vital Signs Date Time Temp Pulse Resp B/P (MAP) Pulse Ox O2 Delivery O2 Flow Rate FiO2 02/25/17 00:39 98.5 78 16 159/77 (104) 98 Room Air Differential Diagnosis Mood disorder versus substance abuse versus intoxication versus suicidal ideations versus other Narrative Course Patient is a 56-year-old male presenting voluntarily to emergency department for psychiatric evaluation due to suicidal ideations. Mental health screening discussed with the patient. Psychiatric screen ordered. Patient refused lab draw to assess alcohol level. On arrival he was agitated and yelling profanities and being aggressive. He was given 0.5 mg of Ativan orally and has been resting comfortably since that time. At this time patient is medically cleared for psychiatric evaluation. Diagnosis Primary Impression: Medical clearance for psychiatric admission Additional Impression: Inguinal hernia Qualified Codes: K40.90 - Unilateral inguinal hernia, without obstruction or gangrene, not specified as recurrent Condition: Stable Elise Orr Feb 25, 2017 01:37
[2017-02-25 07:52] VITALS: BP 127/75; PULSE 66; RESP 16; TEMP 98; O2SAT 99
--- NOTE | 2017-02-25 13:04 | PD ---
Physical Exam Date Seen by Provider: Feb 25, 2017 Time Seen by Provider: 13:02 Narrative 56-year-old male previously medically cleared for psychiatric evaluation for homicidal and suicidal ideation. Patient has been seen by the psychiatrist and cleared for discharge at this time. Patient is still medically stable for discharge. Data Data Last Documented VS Vital Signs Date Time Temp Pulse Resp B/P (MAP) Pulse Ox O2 Delivery O2 Flow Rate FiO2 02/25/17 07:52 98.0 66 16 127/75 (92) 99 Room Air Orders Orders Alcohol (Ethanol) (02/25/17 01:19) Psych Screen (02/25/17 01:19) Ibuprofen (Motrin) (02/25/17 01:30) Lorazepam (Ativan) (02/25/17 01:30) Diet Regular Basic (02/25/17 Breakfast) Labs Laboratory Tests Test 02/25/17 11:05 Ethyl Alcohol Level LESS THAN 3 MG/DL [facility] Medical Record Reviewed: Yes Supervised Visit with ODILON: Yes Narrative Course 56-year-old male previously medically cleared for psychiatric evaluation for homicidal and suicidal ideation. Patient has been seen by the psychiatrist and cleared for discharge at this time. Patient is still medically stable for discharge. Diagnosis Primary Impression: Medical clearance for psychiatric admission Additional Impression: Inguinal hernia Qualified Codes: K40.90 - Unilateral inguinal hernia, without obstruction or gangrene, not specified as recurrent Patient Instructions: General Instructions Med/Other Pt SpecificInfo: Prescription(s) given Disposition: 01 DISCHARGE HOME Condition: Stable Colin Real Feb 25, 2017 13:04
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
== END 2017-02-25 13:33 | disposition home or self-care (01) ==
LOC: NEPD 00:38
DX: K40.90 Unilateral inguinal hernia, without obstruction or gangrene, not specified as recurrent (principal); R45.851 Suicidal ideations; R45.850 Homicidal ideations; F17.210 Nicotine dependence, cigarettes, uncomplicated
CPT/HCPCS: 80307; 99284

== ENCOUNTER 2017-02-26 21:46 | Emergency (ER) | payer MEDICAID ==
[~2017-02-26] VITALS: Ht 185.4 cm; Wt 77.0 kg
[2017-02-26 21:54] VITALS: BP 133/85; PULSE 80; RESP 16; TEMP 98; O2SAT 99
[2017-02-27 00:19] VITALS: BP 165/99; PULSE 78; RESP 16; TEMP 97.6; O2SAT 100
--- NOTE | 2017-02-27 00:27 | PD ---
HPI Chief Complaint: Complaint Time Seen by Provider: 00:22 Travel History International Travel<30 days: No Contact w/Intl Traveler<30days: No Traveled to known affect area: No History of Present Illness HPI The patient is a 56 year old male who presents to the [facility] emergency department with a history of burning with urination and a knot in the pelvis that began 8 days ago. He has had n/v that began today. He has had n/v x3. He had hematuria on night. He has had a subjective fever. He denies having any cough, congestion, neck pain, chest pain, abdominal pain, shortness of breath, diarrhea, or neurologic symptoms. PFSH Past Medical History Narrative Medical The patient's past medical history is significant for bipolar disorder, depression, history of mouth cancer, hypertension, schizophrenia. Bipolar Disorder: Yes Depression: Yes Cancer: Yes (MOUTH) Diminished Hearing: No Hypertension: Yes Immunizations Current: Yes Schizophrenia: Yes Past Surgical History Narrative Surgical The patient's past surgical history is significant for having a tumor removed from his left jaw. Oral Surgery: Yes (TUMOR REMOVED FROM LEFT JAW 1985) Social History Alcohol Use: Yes (ALL DAY EVERY DAY) Tobacco Use: Yes (5 CIG PER DAY) Substance Use: Yes (CRACK) Allergies-Medications (Allergen,Severity, Reaction): Coded Allergies: No Known Allergies (Unverified , 02/27/17) Reported Meds & Prescriptions Reported Meds & Active Scripts Active Cipro (Ciprofloxacin HCl) 500 Mg Tab 500 Mg PO BID Ibuprofen 600 Mg Tab 600 Mg PO Q6H PRN Review of Systems Except as stated in HPI: all other systems reviewed are Neg General / Constitutional: No: Fever Eyes: No: Visual changes HENT: No: Headaches Cardiovascular: No: Chest Pain or Discomfort Respiratory: No: Shortness of Breath Gastrointestinal: Positive: Abdominal Pain (suprapubic abdominal discomfort), No: Nausea, Vomiting, Diarrhea Genitourinary: Positive: Urgency, Frequency, Dysuria, Hematuria ( night.) Musculoskeletal: No: Pain Skin: No Rash Neurologic: No: Weakness Psychiatric: No: Depression Endocrine: No: Polydipsia Hematologic/Lymphatic: No: Easy Bruising Physical Exam Narrative General: The patient is a well-developed well-nourished male in no acute distress. Head and Neck exam: Head is normocephalic atraumatic. 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 The patient is noted to have a cataract involving the right eye. Left pupil is reactive to light. Nose: Midline septum with pink mucous membranes Mouth: Dentition unremarkable. Moist mucus membranes. Posterior oropharynx is not erythematous. No tonsillar hypertrophy. Uvula midline. Airway patent. Neck: No palpable lymphadenopathy. No nuchal rigidity. No thyromegaly. Cardiovascular: Regular rate and rhythm without murmurs, gallops, or rubs. Lungs: Clear to auscultation bilaterally. No wheezes, rhonchi, or rales. Abdomen: Soft, without tenderness to palpation in all 4 quadrants of the abdomen. No guarding, rebound, or rigidity. Normal bowel sounds are audible. No tenderness on palpation of McBurney's point. Extremities: No clubbing, cyanosis, or edema. 2+ pulses in all 4 extremities. No calf tenderness on palpation. Back: No spinous process tenderness to palpation. No costovertebral angle tenderness to palpation. Neurologic Exam: Grossly nonfocal. Skin Exam: No rash noted. Intact skin that is warm and dry. right groin TTP. Genital exam: The patient is an uncircumcised male. No genital lesions or rash noted. No palpable testicle masses or tenderness on palpation. No palpable hernia into the scrotum, however on examination of the right groin the patient is noted to have an area of swelling noted with standing. This is easily reducible. This is approximately dime sized. Data Data Last Documented VS Vital Signs Date Time Temp Pulse Resp B/P (MAP) Pulse Ox O2 Delivery O2 Flow Rate FiO2 02/27/17 04:08 02/27/17 00:19 97.6 78 16 100 Room Air Orders Orders Complete Blood Count With Diff (02/27/17:) Basic Metabolic Panel (Bmp) (02/27/17:) Urinalysis - C+S If Indicated (02/27/17:) Ct Abd/Pel W/O Iv Contrast (02/27/17:25) Iv Access Insert/Monitor (02/27/17 00:) Ecg Monitoring (02/27/17:) Oximetry (02/27/17:) Sodium Chlor 0.9% 1000 Ml Inj (Ns 1000 M (02/27/17 03:00) Ondansetron Inj (Zofran Inj) (02/27/17 03:00) Urine Culture (02/27/17 03:30) Ciprofloxacin (Cipro) (02/27/17 04:15) Labs Laboratory Tests Test 02/27/17 01:00 02/27/17 03:30 White Blood Count 6.3 TH/MM3 Red Blood Count 4.38 MIL/MM3 Hemoglobin 14.8 GM/DL Hematocrit 42.7 % Mean Corpuscular Volume 97.3 FL Mean Corpuscular Hemoglobin 33.7 PG Mean Corpuscular Hemoglobin Concent 34.6 % Red Cell Distribution Width 13.5 % Platelet Count 219 TH/MM3 Mean Platelet Volume 7.7 FL Neutrophils (%) (Auto) 47.5 % Lymphocytes (%) (Auto) 40.7 % Monocytes (%) (Auto) 9.1 % Eosinophils (%) (Auto) 1.3 % Basophils (%) (Auto) 1.4 % Neutrophils # (Auto) 3.0 TH/MM3 Lymphocytes # (Auto) 2.6 TH/MM3 Monocytes # (Auto) 0.6 TH/MM3 Eosinophils # (Auto) 0.1 TH/MM3 Basophils # (Auto) 0.1 TH/MM3 CBC Comment AUTO DIFF Differential Comment AUTO DIFF CONFIRMED Platelet Estimate NORMAL Platelet Morphology Comment NORMAL Red Cell Morphology Comment NORMAL Blood Urea Nitrogen 25 MG/DL Creatinine 1.29 MG/DL Random Glucose 85 MG/DL Calcium Level 8.4 MG/DL Sodium Level 136 MEQ/L Potassium Level 3.8 MEQ/L Chloride Level 104 MEQ/L Carbon Dioxide Level 23.4 MEQ/L Anion Gap 9 MEQ/L Estimat Glomerular Filtration Rate 57 ML/MIN Urine Color YELLOW Urine Turbidity CLEAR Urine pH 5.5 Urine Specific [place] 1.019 Urine Protein NEG mg/dL Urine Glucose (UA) NEG mg/dL Urine Ketones TRACE mg/dL Urine Occult Blood NEG Urine Nitrite NEG Urine Bilirubin NEG Urine Urobilinogen 4.0 MG/DL Urine Leukocyte Esterase MOD Urine RBC 1 /hpf Urine WBC 13 /hpf Urine Squamous Epithelial Cells 1 /hpf Microscopic Urinalysis Comment CULTURE INDICATED MDM Medical Decision Making Medical Screen Exam Complete: Yes Emergency Medical Condition: Yes Medical Record Reviewed: Yes Interpretation(s) Last Impressions Abdomen/Pelvis CT 02/27/17 0025 Signed Impressions: Service Date/Time: Monday, February 27, 2017 01:11 - CONCLUSION: No evidence of kidney stone or hydronephrosis. No explanation for hematuria Jon Goodman MD Differential Diagnosis Hernia, versus inguinal lymphadenopathy, versus cystitis, versus epididymitis, versus kidney stone Narrative Course During the course of the patients emergency department visit, the patients history, examination, and differential diagnosis were reviewed with the patient. The patient had IV access obtained and blood work sent for analysis. The patient's electronic medical record was reviewed. The patient was just seen in the emergency department for evaluation on February 23 related to right inguinal and testicle pain. The patient at that time underwent GC and Chlamydia of the urine that were negative. The patient had a urinalysis that was unremarkable. An ultrasound of the testicle that showed good flow bilaterally. The patient was noted to have a small right varicocele. No CT scan of the abdomen and pelvis was done. The patient was initially provided normal saline 1 L IV fluid bolus, Zofran 4 mg IV. The patients laboratory studies were reviewed and remarkable for a white count of 6.3, hemoglobin 14.8, platelets 219 with 9.1 monos, basic metabolic profile is remarkable for a BUN of 25, GFR 57, calcium 8.4, urinalysis shows trace ketones, 4 urobilinogen, moderate leukocyte esterase, 13 wbc's. Culture is indicated. Given the patient's symptoms, patient was started on ciprofloxacin 500 mg by mouth 1. A CT scan of the abdomen and pelvis showed no evidence of kidney stone or hydronephrosis. No explanation for the patient's hematuria. The patient will be discharged home with a prescription for ciprofloxacin. The patient is resting comfortably and feels better, is alert and in no distress. The patients results and examination findings were discussed with the patient. The repeat examination is unremarkable and benign. The history, exam, diagnostic testing, and current condition do not suggest any significant pathology to warrant further testing, continued ED treatment, admission, or surgical evaluation at this point. The vital signs have been stable. The patient does not have uncontrollable pain, intractable vomiting, or other significant symptoms. The patient's condition is stable and appropriate for discharge. The patient will pursue further outpatient evaluation with a primary care physician or other designated or consulting physician as indicated in the discharge instructions. The patient expressed understanding and was agreeable with this plan. Diagnosis Primary Impression: Urinary tract infection Qualified Codes: N30.01 - Acute cystitis with hematuria Additional Impression: Right groin pain Referrals: [facility] 2 days Patient Instructions: General Instructions, Urinary Tract Infection in Men (ED) Med/Other Pt SpecificInfo: Prescription(s) given Scripts Ciprofloxacin (Cipro) 500 Mg Tab 500 MG PO BID for Infection, #27 TAB 0 Refills Prov: Lenora Esparza MD 02/27/17 Disposition: 01 DISCHARGE HOME Condition: Stable Lenora Esparza MD Feb 27, 2017 00:27
[2017-02-27 01:23] LABS: BASOPHIL # 0.1 TH/MM3 (0-0.2); BASOPHIL % 1.4 % (0.0-2.0); EOSINOPHIL # 0.1 TH/MM3 (0-0.4); EOSINOPHIL % 1.3 % (0.0-4.0); HEMATOCRIT 42.7 % (39.0-51.0); LYMPH % 40.7 % (9.0-44.0); LYMPHOCYTE # 2.6 TH/MM3 (1.0-4.8); MEAN CELL VOLUME 97.3 FL (80.0-100.0); MEAN CORPUSCULAR HEMOGLOBIN 33.7 PG (27.0-34.0); MEAN CORPUSCULAR HGB CONC 34.6 % (32.0-36.0); MONO % 9.1 % (0.0-8.0); NEUT % 47.5 % (16.0-70.0); PLATELET COUNT 219 TH/MM3 (150-450); RED BLOOD COUNT 4.38 MIL/MM3 (4.50-5.90); RED CELL DISTRIBUTION WIDTH 13.5 % (11.6-17.2); WHITE BLOOD COUNT 6.3 TH/MM3 (4.0-11.0)
--- NOTE | 2017-02-27 01:28 | RADRPT ---
EXAM DATE/TIME: 02/27/2017 01:11 [facility] COMPARISON: No previous studies available for comparison. INDICATIONS : Hematuria ORAL CONTRAST: No oral contrast ingested. RADIATION DOSE: 5.32 CTDIvol (mGy) MEDICAL HISTORY : Hypertension. Drug abuse SURGICAL HISTORY : None. ENCOUNTER: Initial ACUITY: 1 day PAIN SCALE: 2/10 LOCATION: abdomen TECHNIQUE: Volumetric scanning of the abdomen and pelvis was performed. Using automated exposure control and ad justment of the mA and/or kV according to patient size, radiation dose was kept as low as reasonably achievable to obtain optimal diagnostic quality images. DICOM format image data is available electro nically for review and comparison. FINDINGS: LOWER LUNGS: The visualized lower lungs are clear. LIVER: Homogeneous density without lesion. There is no dilation of the biliary tree. No calcified gallston es. SPLEEN: Normal size without lesion. PANCREAS: Within normal limits. KIDNEYS: Normal in size and shape. There is no mass, stone, or hydronephrosis. ADRENAL GLANDS: Within normal limits. VASCULAR: There is no aortic aneurysm. BOWEL/MESENTERY: The stomach, small bowel, and colon demonstrate no acute abnormality. There is no free intraperitone al air or fluid. ABDOMINAL WALL: Within normal limits. RETROPERITONEUM: There is no lymphadenopathy. BLADDER: No wall thickening or mass. REPRODUCTIVE: Within normal limits. INGUINAL: There is no lymphadenopathy or hernia. MUSCULOSKELETAL: Within normal limits for patient age. CONCLUSION: No evidence of kidney stone or hydronephrosis. No explanation for hematuria Jon Goodman MD on February 27, 2017 at 1:23 Board Certified Radiologist. This report was verified electronically.
[2017-02-27 01:33] LABS: HEMO FLAGS AUTO DIFF
[2017-02-27 01:49] LABS: BICARBONATE 23.4 MEQ/L (21.0-32.0); POTASSIUM 3.8 MEQ/L (3.5-5.1)
[2017-02-27 02:00] LABS: PLATELET ESTIMATE SMEAR NORMAL (NORMAL); PLATELET MORPHOLOGY NORMAL (NORMAL); SCAN/DIFF AUTO DIFF CONFIRMED
[2017-02-27] MEDS ORDERED: SODIUM CHLOR 0.9% 1000 ML INJ 1,000 ML IV ONE (03:00)
[2017-02-27] MEDS ORDERED: ONDANSETRON HCL 4 MG/2 ML VIAL IV ONE (03:00)
[2017-02-27 03:56] LABS: BLOOD, URINE NEG (NEG); COMMENT (UR) CULTURE INDICATED; CULTURE IF INDICATED CULTURE INDICATED; GLUCOSE,URINE NEG (NEG); KETONE, URINE TRACE mg/dL (NEG); NITRITE,URINE NEG (NEG); PH, URINE 5.5 (5.0-8.5); SQUAMOUS EPITHELIAL CELL URINE 1 /hpf (0-5); URINE COLOR YELLOW (YELLW/STRAW)
[2017-02-27] MEDS ORDERED: CIPR-9 PO (04:03)
[2017-02-27] MEDS ORDERED: CIPROFLOXACIN 500 MG TAB PO ONE (04:15)
== END 2017-02-27 04:56 | disposition home or self-care (01) ==
LOC: NEPC 21:46
DX: N30.01 Acute cystitis with hematuria (principal); R10.31 Right lower quadrant pain; F14.90 Cocaine use, unspecified, uncomplicated; I10 Essential (primary) hypertension; Z72.0 Tobacco use
CPT/HCPCS: 74176; 80048; 81001; 85025; 87086; 96361; 96374; 99285; J2405; J7030